=== PATIENT | female | born 1990 | race American Indian/Alaskan Native ===

== ENCOUNTER 2021-06-28 20:36 | Inpatient (IN) | payer MEDICAID, OTHER ==
[2021-06-28] MEDS ORDERED: LACTATED RINGERS 1,000 ML IV ONE (21:47)
[2021-06-28 22:41] LABS: Bilirubin,Urine NEG (Negative); Blood,Urine SM (Negative); Color,Urine Yellow (Yellow); Mucus,Urine FEW /HPF
[2021-06-29] MEDS ORDERED: AMPICILLIN/NS 2 GM/100 ML 2 GM/100 ML BAG IV ONE (00:45)
[2021-06-29] MEDS: LACTATED RINGERS 1,000 ML IV SCH ×2 (01:53→14:22)
[2021-06-29] MEDS: BETAMET ACET/BETAMET NA PH 6 MG/ML INJ 5 ML MDV IM SCH (01:54)
[2021-06-29 02:19] LABS: Hemoglobin 10.3 gm/dl (10.1-14.3)
[2021-06-29] MEDS: ZOLPIDEM 5 MG TAB PO PRN (02:29)
--- NOTE | 2021-06-29 03:10 | Ultrasound Report ---
ULTRASOUND OBSTETRIC INDICATION: Evaluate ARUN, presentation, weight. Clinical Gestational Age (GA): 23 weeks, 6 days TECHNIQUE: Transabdominal. COMPARISON: None available. FINDINGS: There is a single intrauterine . Biparietal Diameter = 6.12 cm = 24 weeks, 6 day(s). Head Circumference = 20.8 cm = 23 weeks, 6 day(s). Abdominal Circumference = 17.54 cm = 22 weeks, 3 day(s). Femur Length = 4.5 cm = 24 weeks, 5 day(s). Average Ultrasound Age (AUA) = 23 weeks, 5 day(s). Heart Rate: 148 beats per minute. Estimated Weight in grams (if calculated): 601 Estimated Weight Growth Percentile (if calculated): 26 Position: cephalic. Cervix: closed. Length in cm (if measured): 2.7 to Placenta: Right lateral and free of the os. Amniotic Fluid Volume: decreased Amniotic Fluid Index (ARUN) in cm (if calculated): 2.4. Maternal Adnexa: No significant abnormality. IMPRESSION: 1. Single, living intrauterine with estimated sonographic age of 23 weeks, 5 day(s). 2. Decreased amniotic fluid index of 2.4 cm. 3. No other significant abnormalities. Signer Name: Raphael Zamudio MD Signed: 06/29/2021 3:05 AM Workstation Name: [id number]
[2021-06-29 03:12] LABS: Hematocrit 31.8 % (30.3-42.9); Mean Corpuscular HGB Conc 32 % (30-34); Mean Corpuscular Volume 91 fl (79-97); Platelet Count 342 K/mm3 (140-440); Red Blood Count 3.52 M/mm3 (3.65-5.03); Red Cell Distribution Width 13.4 % (13.2-15.2)
[2021-06-29] MEDS: AMPICILLIN/NS 1 GM/50 ML 1 GM/50 ML BAG IV SCH ×5 (05:48→23:31)
--- NOTE | 2021-06-29 07:58 | History and Physical Report ---
History of Present Illness Date of examination: 06/28/21 Date of admission: 06/28/21 Chief complaint: PPROM at about 10pm 06/28/21. History of present illness: 23+wks. . CATIE 10/20/20. Past History Past Medical History: no pertinent history Past Surgical History: section - Obstetrical History Expected Date of Delivery: 10/20/21 Actual Gestation: 23 Week(s) 6 Day(s) : 2 Para: 1 Hx # Term Pregnancies: 1 Medications and Allergies Allergies Allergy/AdvReac Type Severity Reaction Status Date / Time No Known Allergies Allergy Verified 06/28/21 21:55 Home Medications Medication Instructions Recorded Confirmed Last Taken Type One Daily Tablet 1 tab PO DAILY 06/29/21 06/29/21 06/28/21 10:00 History Active Meds: Active Medications Betamethasone Acet/Betameth SodPhos (Betamet Acet/Betamet Na Ph 6 Mg/Ml Inj 5 Ml Mdv) 12 mg IM Q24H BETY Stop: 06/30/21 02:01 Last Admin: 06/29/21 01:54 Dose: 12 mg Documented by: Butorphanol Tartrate (Butorphanol 2 Mg/1 Ml Inj) 1 mg IV Q2H PRN PRN Reason: Pain, Moderate(4-6) LABOR PAIN Lactated Ringer's (Lactated Ringers) 1,000 mls @ 100 mls/hr IV DIRECT BETY Last Admin: 06/29/21 01:53 Dose: 100 mls/hr Documented by: Ampicillin Sodium (Ampicillin/Ns 1 Gm/50 Ml) 1 gm in 50 mls @ 100 mls/hr IV Q4H BETY; Protocol Last Admin: 06/29/21 05:48 Dose: 100 mls/hr Documented by: Zolpidem Tartrate (Zolpidem 5 Mg Tab) 5 mg PO QHS PRN PRN Reason: Sleep Last Admin: 06/29/21 02:29 Dose: 5 mg Documented by: Review of Systems All systems: negative Constitutional: no fever, no anorexia - Vital Signs Vital signs: Vital Signs Pulse Pulse Ox 102 H 98 06/28/21 21:32 06/28/21 21:32 Temp Pulse Resp BP Pulse Ox 98.8 F 84 17 98/58 98 06/29/21 00:21 06/29/21 07:52 06/29/21 00:21 06/29/21 00:21 06/29/21 07:52 - Physical Exam Breasts: Positive: deferred Cardiovascular: Regular rate Lungs: Positive: Normal air movement Abdomen: Positive: soft, distention Uterus: Positive: enlarged, normal contour Extremities: Positive: normal Deep Tendon Reflex Grade: Normal +2 - Obstetrical FHR: category 1 Results Result Diagrams: 06/29/21 01:40 Abnormal lab results 06/28/21 06/28/21 06/29/21 Range/Units 21:50 21:50 01:40 WBC 12.4 H (4.5-11.0) K/mm3 RBC 3.52 L (3.65-5.03) M/mm3 Urine WBC (Auto) 63.0 H (0.0-6.0) /HPF U Epithel Cells (Auto) 17.0 H (0-13.0) /HPF Membranes Rupture Positive A (Negative) All other labs normal. Ultrasound: report reviewed Assessment and Plan - Patient Problems (1) Premature rupture of membranes in second trimester Current Visit: Yes Status: Acute Plan to address problem: Admitted, rx ampicillin, betamethasone, MFM and NICU consults, gbs and urine cultures. MFM to advice on when MgSO4 for neuro protection should start.
[2021-06-29] MEDS: BUTORPHANOL 2 MG/1 ML INJ IV PRN (14:32)
[2021-06-29] MEDS: ERYTHROMYCIN LACTOBIONATE 250 MG in SODIUM CHLORIDE 0.9% 100 ML IV SCH (23:31)
[2021-06-30] MEDS: ONDANSETRON 4 MG/2 ML INJ IV PRN ×2 (01:57→12:51)
[2021-06-30] MEDS: ZOLPIDEM 5 MG TAB PO PRN ×2 (02:03→23:37)
[2021-06-30] MEDS: BETAMET ACET/BETAMET NA PH 6 MG/ML INJ 5 ML MDV IM SCH (02:03)
[2021-06-30] MEDS: LACTATED RINGERS 1,000 ML IV SCH ×3 (02:04→23:28)
[2021-06-30] MEDS: AMPICILLIN/NS 1 GM/50 ML 1 GM/50 ML BAG IV SCH ×5 (02:30→21:09)
[2021-06-30] MEDS: BUTORPHANOL 2 MG/1 ML INJ IV PRN (11:37)
[2021-06-30] MEDS: ERYTHROMYCIN LACTOBIONATE 250 MG in SODIUM CHLORIDE 0.9% 100 ML IV SCH ×2 (12:51→19:07)
--- NOTE | 2021-06-30 18:58 | Progress Note ---
Assessment and Plan - Patient Problems (1) Premature rupture of membranes in second trimester Current Visit: Yes Status: Acute Plan to address problem: Dr. Rios was in the unit yesterday 06/29/21 and was outbound sales consultant for his group. He accepted to see patient after we spoke. I contacted him again today and he confirmed having seen the patient yesterday and had sent in an efax re his evaluation. Consult note not on file. I spoke with the patient's RN, Nory and she confirmed being aware of the missing efax. Efforts to obtain efax urged. Subjective - Subjective Date of service: 06/30/21 Principal diagnosis: PPROM Interval history: 23+wks. . CATIE 10/20/20. Patient reports: loss of fluid, movement normal Objective - Vital Signs Vital Signs: Vital Signs - 12hr 06/30/21 06/30/21 06/30/21 08:00 08:05 08:44 Temperature Pulse Rate 80 Respiratory Rate Blood Pressure 100/55 O2 Sat by Pulse 100 Oximetry O2 Sat by Pulse 98 Oximetry [ Anterior Bilateral Throughout] 06/30/21 06/30/21 06/30/21 09:04 09:09 09:14 Temperature Pulse Rate 108 H 81 81 Respiratory Rate Blood Pressure O2 Sat by Pulse 100 99 99 Oximetry O2 Sat by Pulse Oximetry [ Anterior Bilateral Throughout] 06/30/21 06/30/21 06/30/21 09:19 09:24 09:29 Temperature Pulse Rate 79 89 91 H Respiratory Rate Blood Pressure O2 Sat by Pulse 98 98 99 Oximetry O2 Sat by Pulse Oximetry [ Anterior Bilateral Throughout] 06/30/21 06/30/21 06/30/21 09:34 09:39 09:44 Temperature Pulse Rate 91 H 83 86 Respiratory Rate Blood Pressure O2 Sat by Pulse 99 98 98 Oximetry O2 Sat by Pulse Oximetry [ Anterior Bilateral Throughout] 06/30/21 06/30/21 06/30/21 09:49 09:54 09:59 Temperature Pulse Rate 84 84 82 Respiratory Rate Blood Pressure O2 Sat by Pulse 98 98 99 Oximetry O2 Sat by Pulse Oximetry [ Anterior Bilateral Throughout] 06/30/21 06/30/21 06/30/21 10:04 10:09 10:14 Temperature Pulse Rate 88 84 83 Respiratory Rate Blood Pressure O2 Sat by Pulse 99 99 98 Oximetry O2 Sat by Pulse Oximetry [ Anterior Bilateral Throughout] 06/30/21 06/30/21 06/30/21 10:19 10:24 10:29 Temperature Pulse Rate 86 83 101 H Respiratory Rate Blood Pressure O2 Sat by Pulse 99 100 99 Oximetry O2 Sat by Pulse Oximetry [ Anterior Bilateral Throughout] 06/30/21 06/30/21 06/30/21 10:34 10:42 10:44 Temperature Pulse Rate 85 113 H Respiratory Rate Blood Pressure O2 Sat by Pulse 99 74 L 96 Oximetry O2 Sat by Pulse Oximetry [ Anterior Bilateral Throughout] 06/30/21 06/30/21 06/30/21 10:49 10:54 10:59 Temperature Pulse Rate 86 87 89 Respiratory Rate Blood Pressure O2 Sat by Pulse 99 99 99 Oximetry O2 Sat by Pulse Oximetry [ Anterior Bilateral Throughout] 06/30/21 06/30/21 06/30/21 11:04 11:09 11:14 Temperature Pulse Rate 79 91 H 88 Respiratory Rate Blood Pressure O2 Sat by Pulse 99 98 99 Oximetry O2 Sat by Pulse Oximetry [ Anterior Bilateral Throughout] 06/30/21 06/30/21 06/30/21 11:19 11:37 11:39 Temperature 98.2 F Pulse Rate 91 H 70 Respiratory 18 18 Rate Blood Pressure O2 Sat by Pulse 98 92 Oximetry O2 Sat by Pulse Oximetry [ Anterior Bilateral Throughout] 06/30/21 06/30/21 06/30/21 11:40 16:23 16:25 Temperature 98.2 F Pulse Rate 87 88 Respiratory 18 Rate Blood Pressure 99/59 111/57 O2 Sat by Pulse 52 L Oximetry O2 Sat by Pulse Oximetry [ Anterior Bilateral Throughout] - Exam Lungs: Normal air movement Abdomen: Absent: tenderness Uterus: Absent: tenderness Extremities: normal Deep Tendon Reflex Grade: Normal +2 - Labs Labs: Abnormal Labs 06/28/21 06/28/21 06/29/21 21:50 21:50 01:40 WBC 12.4 H RBC 3.52 L Urine WBC (Auto) 63.0 H U Epithel Cells (Auto) 17.0 H Membranes Rupture Positive A
[2021-07-01] MEDS: ERYTHROMYCIN LACTOBIONATE 250 MG in SODIUM CHLORIDE 0.9% 100 ML IV SCH ×4 (00:15→20:03)
[2021-07-01] MEDS: ONDANSETRON 4 MG/2 ML INJ IV PRN ×3 (00:47→20:08)
[2021-07-01] MEDS: AMPICILLIN/NS 1 GM/50 ML 1 GM/50 ML BAG IV SCH ×5 (03:00→22:05)
--- NOTE | 2021-07-01 08:15 | Progress Note ---
Assessment and Plan IUP at 24 1/7 weeks' PPROM Maternal PCOS Previous C/S Continue expectant management RGS in approximately 1 week Subjective - Subjective Date of service: 07/01/21 Principal diagnosis: PPROM Interval history: Feeling well, fetus active; denied contractions Patient reports: loss of fluid, movement normal Objective - Vital Signs Vital Signs: Vital Signs - 12hr 06/30/21 06/30/21 06/30/21 20:54 20:58 21:03 Temperature 98.0 F Pulse Rate 71 76 Respiratory 18 Rate Blood Pressure Blood Pressure 96/56 [Left] O2 Sat by Pulse 98 98 Oximetry O2 Sat by Pulse 99 Oximetry [ Anterior Bilateral Throughout] 06/30/21 07/01/21 07/01/21 21:04 03:41 03:43 Temperature 98.0 F Pulse Rate 76 77 77 Respiratory 16 Rate Blood Pressure 96/56 95/50 Blood Pressure 95/50 [Left] O2 Sat by Pulse Oximetry O2 Sat by Pulse Oximetry [ Anterior Bilateral Throughout] 07/01/21 07:16 Temperature Pulse Rate 75 Respiratory Rate Blood Pressure 100/55 Blood Pressure [Left] O2 Sat by Pulse Oximetry O2 Sat by Pulse Oximetry [ Anterior Bilateral Throughout] - Exam Narrative Exam: Abdomen soft, nontender; FHT's reassuring for EGA earlier today - Labs Labs: Abnormal Labs 06/28/21 06/28/21 06/29/21 21:50 21:50 01:40 WBC 12.4 H RBC 3.52 L Urine WBC (Auto) 63.0 H U Epithel Cells (Auto) 17.0 H Membranes Rupture Positive A
--- NOTE | 2021-07-01 11:31 | Progress Note ---
Assessment and Plan - Patient Problems (1) Premature rupture of membranes in second trimester Current Visit: Yes Status: Acute Plan to address problem: Hospital mgt to continue. Subjective - Subjective Date of service: 07/01/21 Principal diagnosis: PPROM, 24+1wks Interval history: 23+wks. . CATIE 10/20/20. Patient reports: loss of fluid, movement normal Objective - Vital Signs Vital Signs: Vital Signs - 12hr 07/01/21 07/01/21 07/01/21 03:41 03:43 07:16 Temperature 98.0 F Pulse Rate 77 77 75 Respiratory 16 Rate Blood Pressure 95/50 100/55 Blood Pressure 95/50 [Left] - Exam Breasts: deferred Cardiovascular: Regular rate Lungs: Normal air movement Abdomen: Present: normal appearance, soft, normal bowel sounds. Absent: tenderness Uterus: Present: normal. Absent: tenderness FHR: auscultation normal - Labs Labs: Abnormal Labs 06/28/21 06/28/21 06/29/21 21:50 21:50 01:40 WBC 12.4 H RBC 3.52 L Urine WBC (Auto) 63.0 H U Epithel Cells (Auto) 17.0 H Membranes Rupture Positive A
[2021-07-01] MEDS: BUTORPHANOL 2 MG/1 ML INJ IV PRN (16:26)
[2021-07-01] MEDS: LACTATED RINGERS 1,000 ML IV SCH (22:04)
[2021-07-02] MEDS: ZOLPIDEM 5 MG TAB PO PRN ×2 (01:25→23:25)
[2021-07-02] MEDS: AMPICILLIN/NS 1 GM/50 ML 1 GM/50 ML BAG IV SCH ×5 (01:25→21:01)
[2021-07-02] MEDS: ONDANSETRON 4 MG/2 ML INJ IV PRN (03:42)
[2021-07-02] MEDS: ERYTHROMYCIN LACTOBIONATE 250 MG in SODIUM CHLORIDE 0.9% 100 ML IV SCH (03:42)
--- NOTE | 2021-07-02 08:03 | Progress Note ---
Assessment and Plan A: 1.IUP at 24 2/7 weeks' EFW 06/29 1 lb 5 oz 26% 2. PPROM 3. Maternal PCOS 4. Previous C/S Rec: Complete latency antibiotics Twice weekly testing beginning at 27-28 weeks Growth scan q 3 weeks RGS 1 week after completion of the BMZ Monitor for chorioamnionitis, labor, distress Delivery at 34 0/7 weeks gestation , sooner if indicated Subjective - Subjective Date of service: 07/02/21 Principal diagnosis: PPROM, 24+2wks Interval history: Notes LOF denied bleeding or contractions s/p BMZ Patient reports: loss of fluid, movement normal Objective - Vital Signs Vital Signs: Vital Signs - 12hr 07/01/21 07/01/21 07/01/21 22:47 22:51 22:53 Temperature Pulse Rate 90 125 H Respiratory Rate Blood Pressure Blood Pressure [Left] O2 Sat by Pulse 88 84 85 Oximetry O2 Sat by Pulse Oximetry [ Anterior Bilateral Throughout] 07/01/21 07/01/21 07/01/21 22:56 23:01 23:06 Temperature Pulse Rate 66 70 72 Respiratory Rate Blood Pressure Blood Pressure [Left] O2 Sat by Pulse 100 99 99 Oximetry O2 Sat by Pulse Oximetry [ Anterior Bilateral Throughout] 07/01/21 07/01/21 07/01/21 23:11 23:16 23:21 Temperature Pulse Rate 73 67 70 Respiratory Rate Blood Pressure Blood Pressure [Left] O2 Sat by Pulse 99 100 100 Oximetry O2 Sat by Pulse Oximetry [ Anterior Bilateral Throughout] 07/01/21 07/01/21 07/01/21 23:22 23:26 23:31 Temperature 98.5 F Pulse Rate 69 81 74 Respiratory 18 Rate Blood Pressure 132/61 Blood Pressure 132/61 [Left] O2 Sat by Pulse 98 99 99 Oximetry O2 Sat by Pulse Oximetry [ Anterior Bilateral Throughout] 07/01/21 07/01/21 07/01/21 23:36 23:41 23:46 Temperature Pulse Rate 71 69 68 Respiratory Rate Blood Pressure Blood Pressure [Left] O2 Sat by Pulse 99 99 99 Oximetry O2 Sat by Pulse Oximetry [ Anterior Bilateral Throughout] 07/01/21 07/01/21 07/02/21 23:51 23:56 00:01 Temperature Pulse Rate 72 69 68 Respiratory Rate Blood Pressure Blood Pressure [Left] O2 Sat by Pulse 99 99 100 Oximetry O2 Sat by Pulse Oximetry [ Anterior Bilateral Throughout] 07/02/21 07/02/21 07/02/21 00:02 00:08 00:13 Temperature Pulse Rate 76 197 H 68 Respiratory Rate Blood Pressure Blood Pressure [Left] O2 Sat by Pulse 79 L 81 L 100 Oximetry O2 Sat by Pulse Oximetry [ Anterior Bilateral Throughout] 07/02/21 07/02/21 07/02/21 00:18 00:23 00:28 Temperature Pulse Rate 69 68 67 Respiratory Rate Blood Pressure Blood Pressure [Left] O2 Sat by Pulse 99 99 99 Oximetry O2 Sat by Pulse Oximetry [ Anterior Bilateral Throughout] 07/02/21 07/02/21 07/02/21 00:33 00:38 00:43 Temperature Pulse Rate 68 72 68 Respiratory Rate Blood Pressure Blood Pressure [Left] O2 Sat by Pulse 99 99 98 Oximetry O2 Sat by Pulse Oximetry [ Anterior Bilateral Throughout] 07/02/21 07/02/21 07/02/21 00:48 00:53 00:58 Temperature Pulse Rate 74 73 73 Respiratory Rate Blood Pressure Blood Pressure [Left] O2 Sat by Pulse 99 92 100 Oximetry O2 Sat by Pulse Oximetry [ Anterior Bilateral Throughout] 07/02/21 07/02/21 07/02/21 01:03 01:08 01:13 Temperature Pulse Rate 72 67 69 Respiratory Rate Blood Pressure Blood Pressure [Left] O2 Sat by Pulse 99 99 99 Oximetry O2 Sat by Pulse Oximetry [ Anterior Bilateral Throughout] 07/02/21 07/02/21 07/02/21 01:18 01:23 01:28 Temperature Pulse Rate 77 70 69 Respiratory Rate Blood Pressure Blood Pressure [Left] O2 Sat by Pulse 99 98 98 Oximetry O2 Sat by Pulse Oximetry [ Anterior Bilateral Throughout] 07/02/21 07/02/21 07/02/21 03:43 03:50 05:11 Temperature 98.4 F Pulse Rate 86 84 177 H Respiratory 18 Rate Blood Pressure 122/59 Blood Pressure 122/59 [Left] O2 Sat by Pulse 82 L 82 L Oximetry O2 Sat by Pulse Oximetry [ Anterior Bilateral Throughout] 07/02/21 07/02/21 07/02/21 05:16 05:19 05:21 Temperature Pulse Rate 119 H 80 86 Respiratory Rate Blood Pressure 98/58 Blood Pressure [Left] O2 Sat by Pulse 82 L 98 Oximetry O2 Sat by Pulse Oximetry [ Anterior Bilateral Throughout] 07/02/21 07/02/21 07/02/21 05:26 05:31 05:36 Temperature Pulse Rate 89 89 91 H Respiratory Rate Blood Pressure Blood Pressure [Left] O2 Sat by Pulse 98 98 99 Oximetry O2 Sat by Pulse Oximetry [ Anterior Bilateral Throughout] 07/02/21 07/02/21 07/02/21 05:41 05:46 05:51 Temperature Pulse Rate 93 H 92 H 92 H Respiratory Rate Blood Pressure Blood Pressure [Left] O2 Sat by Pulse 98 98 98 Oximetry O2 Sat by Pulse Oximetry [ Anterior Bilateral Throughout] 07/02/21 07/02/21 07/02/21 05:56 06:01 06:06 Temperature Pulse Rate 86 93 H 84 Respiratory Rate Blood Pressure Blood Pressure [Left] O2 Sat by Pulse 98 98 98 Oximetry O2 Sat by Pulse Oximetry [ Anterior Bilateral Throughout] 07/02/21 07/02/21 07/02/21 06:11 06:16 06:21 Temperature Pulse Rate 79 82 81 Respiratory Rate Blood Pressure Blood Pressure [Left] O2 Sat by Pulse 99 99 99 Oximetry O2 Sat by Pulse Oximetry [ Anterior Bilateral Throughout] 07/02/21 07/02/21 07/02/21 06:26 06:31 06:36 Temperature Pulse Rate 89 76 78 Respiratory Rate Blood Pressure Blood Pressure [Left] O2 Sat by Pulse 99 99 98 Oximetry O2 Sat by Pulse Oximetry [ Anterior Bilateral Throughout] 07/02/21 07/02/21 07/02/21 06:41 06:46 06:51 Temperature Pulse Rate 77 77 72 Respiratory Rate Blood Pressure Blood Pressure [Left] O2 Sat by Pulse 99 99 99 Oximetry O2 Sat by Pulse Oximetry [ Anterior Bilateral Throughout] 07/02/21 07/02/21 07/02/21 06:56 07:01 07:04 Temperature Pulse Rate 76 77 82 Respiratory Rate Blood Pressure 85/55 Blood Pressure [Left] O2 Sat by Pulse 98 98 Oximetry O2 Sat by Pulse Oximetry [ Anterior Bilateral Throughout] 07/02/21 07/02/21 07:05 07:20 Temperature 98.2 F Pulse Rate 68 Respiratory 18 Rate Blood Pressure 82/53 Blood Pressure [Left] O2 Sat by Pulse Oximetry O2 Sat by Pulse 98 Oximetry [ Anterior Bilateral Throughout] - Labs Labs: Abnormal Labs 06/28/21 06/28/21 06/29/21 21:50 21:50 01:40 WBC 12.4 H RBC 3.52 L Urine WBC (Auto) 63.0 H U Epithel Cells (Auto) 17.0 H Membranes Rupture Positive A
[2021-07-02] MEDS: LACTATED RINGERS 1,000 ML IV SCH ×2 (09:16→21:47)
--- NOTE | 2021-07-02 17:43 | Consultation ---
Consult Note - Parent Education I met with parent(s) and discussed the following:: Need for NICU admission, Poss ible need for intubation and surfactant or other resp support, Temperature regulation, Head ultrasounds to evaluate IVH, Eye exams for ROP screening, Possible need for IV fluids/TPN and IV antibiotics, Possible need for umbilical lines, Importance of providing breast milk & encouraged pumping aft delivery, Donor breast milk if baby meets criteria after , Slow feeding advancement and monitoring of tolerance. NG/OG feeds, Need to monitor for jaundice, Data for survival & survival without significant co-morbidities Parent(s) demonstrated understanding of all the information:: Yes Additional Comment: Parents asked good questions and are aware we are available for further questions if needed as she advances in . She and FOB stated all questions were answered during this consult. Mother stated her doctors have a first goal of 28 weeks. She has been treated with antibiotics of latency and betamethasone X 2. Assessment and Plan - Assessment Gestation:: 24 Baby's gender: Female - Plan Plan: INDICATIONS FOR CONSULT: _ Maternal Hx: 31 yo female GA: 24 wk care with: Hx: PPROM at 23 6/7 on 06/28/2021 PMHx: Noncontributory Family Hx: Noncontributory Social Hx: ETOH: No, Illegal Drugs: No, Smoking: No meds: Betamethasone Yes X 2, antibiotics Labs, if available: Blood type: .A + AntiBody screen: - . HBsAg: Negative RPR: Neg Rubella: Immune GBS; Unknown HIV: NR CH/GC: Negative Consulted to see this mom who is at 24 weeks with: PPROM at 23 6/7 . Mother was admitted on 06/28/2021 to this hospital for: PPROM. During the consult with this patient and her family she was advised of all the standard procedures done to babies born with this clinical condition in the NICU. She was also advised of all the possible complications associated with premature . These complications include, but are not limited to IVH, RDS, CV Instability, Sepsis, Anemia of prematurity, Feeding problems, NEC, ROP, , etc. All her questions and concerns were addressed, and she was advised to follow the recommendations from her physicians. She was also encouraged to call for us in case of more questions. Thanks for this consultation. TOTAL TIME SPENT DURING THIS CONSULATATION WAS: 30 minutes.
--- NOTE | 2021-07-02 20:23 | Progress Note ---
Assessment and Plan - Patient Problems (1) Premature rupture of membranes in second trimester Status: Acute Plan to address problem: Stable. Peds and MFM consults noted. Subjective - Subjective Date of service: 07/02/21 Principal diagnosis: PPROM, 24+3wks Interval history: 23+wks. . CATIE 10/20/20. 07/02/21 23+3wks Patient reports: loss of fluid, movement normal, no new complaints, no vaginal bleeding, no contractions Objective - Vital Signs Vital Signs: Vital Signs - 12hr 07/02/21 07/02/21 07/02/21 08:55 09:30 12:12 Temperature 98.0 F 98.3 F Pulse Rate 77 Blood Pressure 97/54 O2 Sat by Pulse 73 L 85 Oximetry 07/02/21 07/02/21 07/02/21 12:13 13:00 13:02 Temperature Pulse Rate 77 58 L 86 Blood Pressure 93/57 O2 Sat by Pulse 82 L 100 Oximetry 07/02/21 07/02/21 07/02/21 13:07 13:12 13:17 Temperature Pulse Rate 94 H 79 80 Blood Pressure O2 Sat by Pulse 98 100 100 Oximetry 07/02/21 07/02/21 07/02/21 13:22 13:27 13:32 Temperature Pulse Rate 82 79 80 Blood Pressure O2 Sat by Pulse 100 100 100 Oximetry 07/02/21 07/02/21 07/02/21 13:37 13:42 13:47 Temperature Pulse Rate 79 76 77 Blood Pressure O2 Sat by Pulse 100 100 86 Oximetry 07/02/21 07/02/21 07/02/21 13:52 13:57 14:02 Temperature Pulse Rate 37 L 79 75 Blood Pressure O2 Sat by Pulse 83 L 99 99 Oximetry 07/02/21 07/02/21 07/02/21 14:07 14:12 14:17 Temperature 98.3 F Pulse Rate 71 78 89 Blood Pressure O2 Sat by Pulse 99 99 99 Oximetry 07/02/21 07/02/21 07/02/21 14:21 14:22 14:27 Temperature Pulse Rate 84 83 86 Blood Pressure O2 Sat by Pulse 86 98 98 Oximetry 07/02/21 07/02/21 07/02/21 14:32 14:37 14:42 Temperature Pulse Rate 80 82 81 Blood Pressure O2 Sat by Pulse 98 98 99 Oximetry 07/02/21 07/02/21 14:47 14:52 Temperature Pulse Rate 82 89 Blood Pressure O2 Sat by Pulse 98 98 Oximetry - Exam Breasts: deferred Lungs: Normal air movement Abdomen: Present: normal appearance, soft, normal bowel sounds Uterus: Present: normal. Absent: tenderness FHR: auscultation normal Extremities: normal Deep Tendon Reflex Grade: Normal +2 - Labs Labs: Abnormal Labs 06/28/21 06/28/21 06/29/21 21:50 21:50 01:40 WBC 12.4 H RBC 3.52 L Urine WBC (Auto) 63.0 H U Epithel Cells (Auto) 17.0 H Membranes Rupture Positive A Laboratory Results - last 24 hr 07/02/21 10:19 Blood Type O POSITIVE Antibody Screen Negative
[2021-07-02] MEDS: BUTORPHANOL 2 MG/1 ML INJ IV PRN (21:42)
[2021-07-03] MEDS: AMPICILLIN/NS 1 GM/50 ML 1 GM/50 ML BAG IV SCH ×3 (01:15→10:10)
[2021-07-03] MEDS: LACTATED RINGERS 1,000 ML IV SCH (06:33)
--- NOTE | 2021-07-03 12:29 | Progress Note ---
Assessment and Plan - Patient Problems (1) Premature rupture of membranes in second trimester Status: Acute Plan to address problem: I spoke with Wade SILVER. Switch IV ampicillin to po Amoxicillin 500mg q8h to complete 1wk course of penicillin rx. Subjective - Subjective Date of service: 07/03/21 Principal diagnosis: PPROM, 24+4wks Interval history: 23+wks. . CATIE 10/20/20. 07/03/21 23+4wks Patient reports: loss of fluid, movement normal, no new complaints, no vaginal bleeding, no contractions Objective - Vital Signs Vital Signs: Vital Signs - 12hr 07/03/21 07/03/21 07/03/21 01:20 01:21 05:14 Temperature 98.4 F 98.3 F Pulse Rate 147 H 69 73 Respiratory 18 16 Rate Blood Pressure 111/58 92/51 Blood Pressure 111/58 95/51 [Left] O2 Sat by Pulse 80 L 98 98 Oximetry O2 Sat by Pulse Oximetry [ Anterior Bilateral Throughout] 07/03/21 07/03/21 07/03/21 07:18 07:19 07:23 Temperature 98.1 F Pulse Rate 67 67 Respiratory 16 Rate Blood Pressure 96/53 Blood Pressure 96/53 [Left] O2 Sat by Pulse 100 100 Oximetry O2 Sat by Pulse 100 Oximetry [ Anterior Bilateral Throughout] - Exam Breasts: deferred Lungs: Normal air movement Abdomen: Present: normal appearance, soft. Absent: tenderness Uterus: Absent: tenderness FHR: auscultation normal Uterine Contraction Pattern: Absent Extremities: normal Deep Tendon Reflex Grade: Normal +2 - Labs Labs: Abnormal Labs 06/28/21 06/28/21 06/29/21 21:50 21:50 01:40 WBC 12.4 H RBC 3.52 L Urine WBC (Auto) 63.0 H U Epithel Cells (Auto) 17.0 H Membranes Rupture Positive A
[2021-07-03] MEDS: AMOXICILLIN 500 MG CAP PO SCH ×2 (13:43→22:40)
[2021-07-03] MEDS: BUTORPHANOL 2 MG/1 ML INJ IV PRN (19:37)
[2021-07-04] MEDS: AMOXICILLIN 500 MG CAP PO SCH ×3 (06:04→22:54)
--- NOTE | 2021-07-04 08:38 | Progress Note ---
Assessment and Plan IUP at 24 4/7 weeks' PPROM Maternal PCOS Previous C/S Continue expectant management RGS in approximately 1 week Subjective - Subjective Date of service: 07/04/21 Principal diagnosis: PPROM, 24+4wks Interval history: Feeling well, fetus active; denied contractions Patient reports: loss of fluid, movement normal, no new complaints, no vaginal bleeding, no contractions Objective - Vital Signs Vital Signs: Vital Signs - 12hr 07/03/21 07/03/21 07/03/21 21:18 21:22 21:23 Temperature Pulse Rate 36 L 67 76 Respiratory Rate Blood Pressure Blood Pressure [Left] O2 Sat by Pulse 87 84 98 Oximetry 07/03/21 07/03/21 07/03/21 21:28 21:33 21:38 Temperature Pulse Rate 73 80 71 Respiratory Rate Blood Pressure Blood Pressure [Left] O2 Sat by Pulse 100 99 99 Oximetry 07/03/21 07/03/21 07/03/21 21:43 21:48 21:53 Temperature Pulse Rate 73 73 67 Respiratory Rate Blood Pressure Blood Pressure [Left] O2 Sat by Pulse 99 99 99 Oximetry 07/03/21 07/03/21 07/03/21 21:58 22:03 22:08 Temperature Pulse Rate 71 71 74 Respiratory Rate Blood Pressure Blood Pressure [Left] O2 Sat by Pulse 99 98 98 Oximetry 07/03/21 07/03/21 07/03/21 22:13 22:18 22:23 Temperature Pulse Rate 73 80 74 Respiratory Rate Blood Pressure Blood Pressure [Left] O2 Sat by Pulse 98 98 98 Oximetry 07/03/21 07/03/21 07/03/21 22:28 22:33 22:38 Temperature Pulse Rate 75 73 71 Respiratory Rate Blood Pressure Blood Pressure [Left] O2 Sat by Pulse 97 97 97 Oximetry 07/03/21 07/03/21 07/03/21 22:43 22:48 22:53 Temperature Pulse Rate 74 75 71 Respiratory Rate Blood Pressure Blood Pressure [Left] O2 Sat by Pulse 98 98 98 Oximetry 07/03/21 07/03/21 07/03/21 22:58 23:03 23:08 Temperature Pulse Rate 70 73 78 Respiratory Rate Blood Pressure Blood Pressure [Left] O2 Sat by Pulse 99 98 98 Oximetry 07/03/21 07/03/21 07/03/21 23:13 23:18 23:23 Temperature Pulse Rate 70 69 72 Respiratory Rate Blood Pressure Blood Pressure [Left] O2 Sat by Pulse 99 99 98 Oximetry 07/04/21 07/04/21 07/04/21 06:04 06:05 06:10 Temperature Pulse Rate 76 Respiratory Rate Blood Pressure Blood Pressure [Left] O2 Sat by Pulse 85 91 82 L Oximetry 07/04/21 07/04/21 07/04/21 06:14 06:15 06:17 Temperature 97.9 F Pulse Rate 89 65 70 Respiratory 18 Rate Blood Pressure 99/63 Blood Pressure 99/63 [Left] O2 Sat by Pulse 86 83 L 98 Oximetry 07/04/21 07/04/21 07/04/21 06:19 06:24 06:26 Temperature Pulse Rate 71 70 77 Respiratory Rate Blood Pressure Blood Pressure [Left] O2 Sat by Pulse 98 98 91 Oximetry 07/04/21 07/04/21 07/04/21 06:29 06:34 06:39 Temperature Pulse Rate 76 63 105 H Respiratory Rate Blood Pressure Blood Pressure [Left] O2 Sat by Pulse 99 99 74 L Oximetry 07/04/21 07/04/21 07/04/21 06:44 06:49 06:54 Temperature Pulse Rate 69 65 66 Respiratory Rate Blood Pressure Blood Pressure [Left] O2 Sat by Pulse 98 99 99 Oximetry 07/04/21 07/04/21 07/04/21 06:59 07:04 07:09 Temperature Pulse Rate 65 68 72 Respiratory Rate Blood Pressure Blood Pressure [Left] O2 Sat by Pulse 99 99 98 Oximetry 07/04/21 07/04/21 07/04/21 07:14 07:19 07:24 Temperature Pulse Rate 72 69 72 Respiratory Rate Blood Pressure Blood Pressure [Left] O2 Sat by Pulse 98 98 99 Oximetry 07/04/21 07/04/21 07/04/21 07:29 07:34 07:39 Temperature Pulse Rate 66 72 69 Respiratory Rate Blood Pressure Blood Pressure [Left] O2 Sat by Pulse 99 98 98 Oximetry 07/04/21 07/04/21 07/04/21 07:44 07:49 07:54 Temperature Pulse Rate 69 68 65 Respiratory Rate Blood Pressure Blood Pressure [Left] O2 Sat by Pulse 98 98 99 Oximetry 07/04/21 07/04/21 07/04/21 07:59 08:04 08:07 Temperature Pulse Rate 68 89 Respiratory Rate Blood Pressure Blood Pressure [Left] O2 Sat by Pulse 99 99 70 L Oximetry 07/04/21 07/04/21 07/04/21 08:09 08:14 08:20 Temperature Pulse Rate 176 H 107 H 98 H Respiratory Rate Blood Pressure Blood Pressure [Left] O2 Sat by Pulse 82 L 78 L 78 L Oximetry 07/04/21 07/04/21 07/04/21 08:23 08:26 08:31 Temperature Pulse Rate 102 H 160 H Respiratory Rate Blood Pressure Blood Pressure [Left] O2 Sat by Pulse 79 L 78 L 78 L Oximetry 07/04/21 07/04/21 08:34 08:36 Temperature Pulse Rate 105 H Respiratory Rate Blood Pressure Blood Pressure [Left] O2 Sat by Pulse 78 L 79 L Oximetry - Exam Narrative Exam: Abdomen soft, nontender; FHT's reassuring for EGA earlier today - Labs Labs: Abnormal Labs 06/28/21 06/28/21 06/29/21 21:50 21:50 01:40 WBC 12.4 H RBC 3.52 L Urine WBC (Auto) 63.0 H U Epithel Cells (Auto) 17.0 H Membranes Rupture Positive A
[2021-07-04] MEDS: BUTORPHANOL 2 MG/1 ML INJ IV PRN (09:44)
--- NOTE | 2021-07-04 09:54 | Progress Note ---
Assessment and Plan - Patient Problems (1) Premature rupture of membranes in second trimester Status: Acute Plan to address problem: Present mgt to continue. Subjective - Subjective Date of service: 07/04/21 Principal diagnosis: PPROM, 24+5wks Interval history: 23+wks. . CATIE 10/20/20. 07/03/21 23+5wks No complaints. Eating breakfast. Patient reports: loss of fluid, movement normal, no new complaints, no vaginal bleeding, no contractions Objective - Vital Signs Vital Signs: Vital Signs - 12hr 07/03/21 07/03/21 07/03/21 21:53 21:58 22:03 Temperature Pulse Rate 67 71 71 Respiratory Rate Blood Pressure Blood Pressure [Left] O2 Sat by Pulse 99 99 98 Oximetry O2 Sat by Pulse Oximetry [ Anterior Bilateral Throughout] 07/03/21 07/03/21 07/03/21 22:08 22:13 22:18 Temperature Pulse Rate 74 73 80 Respiratory Rate Blood Pressure Blood Pressure [Left] O2 Sat by Pulse 98 98 98 Oximetry O2 Sat by Pulse Oximetry [ Anterior Bilateral Throughout] 07/03/21 07/03/21 07/03/21 22:23 22:28 22:33 Temperature Pulse Rate 74 75 73 Respiratory Rate Blood Pressure Blood Pressure [Left] O2 Sat by Pulse 98 97 97 Oximetry O2 Sat by Pulse Oximetry [ Anterior Bilateral Throughout] 07/03/21 07/03/21 07/03/21 22:38 22:43 22:48 Temperature Pulse Rate 71 74 75 Respiratory Rate Blood Pressure Blood Pressure [Left] O2 Sat by Pulse 97 98 98 Oximetry O2 Sat by Pulse Oximetry [ Anterior Bilateral Throughout] 07/03/21 07/03/21 07/03/21 22:53 22:58 23:03 Temperature Pulse Rate 71 70 73 Respiratory Rate Blood Pressure Blood Pressure [Left] O2 Sat by Pulse 98 99 98 Oximetry O2 Sat by Pulse Oximetry [ Anterior Bilateral Throughout] 07/03/21 07/03/21 07/03/21 23:08 23:13 23:18 Temperature Pulse Rate 78 70 69 Respiratory Rate Blood Pressure Blood Pressure [Left] O2 Sat by Pulse 98 99 99 Oximetry O2 Sat by Pulse Oximetry [ Anterior Bilateral Throughout] 07/03/21 07/04/21 07/04/21 23:23 06:04 06:05 Temperature Pulse Rate 72 76 Respiratory Rate Blood Pressure Blood Pressure [Left] O2 Sat by Pulse 98 85 91 Oximetry O2 Sat by Pulse Oximetry [ Anterior Bilateral Throughout] 07/04/21 07/04/21 07/04/21 06:10 06:14 06:15 Temperature Pulse Rate 89 65 Respiratory Rate Blood Pressure 99/63 Blood Pressure [Left] O2 Sat by Pulse 82 L 86 83 L Oximetry O2 Sat by Pulse Oximetry [ Anterior Bilateral Throughout] 07/04/21 07/04/21 07/04/21 06:17 06:19 06:24 Temperature 97.9 F Pulse Rate 70 71 70 Respiratory 18 Rate Blood Pressure Blood Pressure 99/63 [Left] O2 Sat by Pulse 98 98 98 Oximetry O2 Sat by Pulse Oximetry [ Anterior Bilateral Throughout] 07/04/21 07/04/21 07/04/21 06:26 06:29 06:34 Temperature Pulse Rate 77 76 63 Respiratory Rate Blood Pressure Blood Pressure [Left] O2 Sat by Pulse 91 99 99 Oximetry O2 Sat by Pulse Oximetry [ Anterior Bilateral Throughout] 07/04/21 07/04/21 07/04/21 06:39 06:44 06:49 Temperature Pulse Rate 105 H 69 65 Respiratory Rate Blood Pressure Blood Pressure [Left] O2 Sat by Pulse 74 L 98 99 Oximetry O2 Sat by Pulse Oximetry [ Anterior Bilateral Throughout] 07/04/21 07/04/21 07/04/21 06:54 06:59 07:04 Temperature Pulse Rate 66 65 68 Respiratory Rate Blood Pressure Blood Pressure [Left] O2 Sat by Pulse 99 99 99 Oximetry O2 Sat by Pulse Oximetry [ Anterior Bilateral Throughout] 07/04/21 07/04/21 07/04/21 07:09 07:14 07:19 Temperature Pulse Rate 72 72 69 Respiratory Rate Blood Pressure Blood Pressure [Left] O2 Sat by Pulse 98 98 98 Oximetry O2 Sat by Pulse Oximetry [ Anterior Bilateral Throughout] 07/04/21 07/04/21 07/04/21 07:24 07:29 07:34 Temperature Pulse Rate 72 66 72 Respiratory Rate Blood Pressure Blood Pressure [Left] O2 Sat by Pulse 99 99 98 Oximetry O2 Sat by Pulse Oximetry [ Anterior Bilateral Throughout] 07/04/21 07/04/21 07/04/21 07:39 07:44 07:49 Temperature Pulse Rate 69 69 68 Respiratory Rate Blood Pressure Blood Pressure [Left] O2 Sat by Pulse 98 98 98 Oximetry O2 Sat by Pulse Oximetry [ Anterior Bilateral Throughout] 07/04/21 07/04/21 07/04/21 07:54 07:59 08:04 Temperature Pulse Rate 65 68 89 Respiratory Rate Blood Pressure Blood Pressure [Left] O2 Sat by Pulse 99 99 99 Oximetry O2 Sat by Pulse Oximetry [ Anterior Bilateral Throughout] 07/04/21 07/04/21 07/04/21 08:07 08:09 08:14 Temperature Pulse Rate 176 H 107 H Respiratory Rate Blood Pressure Blood Pressure [Left] O2 Sat by Pulse 70 L 82 L 78 L Oximetry O2 Sat by Pulse Oximetry [ Anterior Bilateral Throughout] 07/04/21 07/04/21 07/04/21 08:20 08:23 08:26 Temperature Pulse Rate 98 H 102 H Respiratory Rate Blood Pressure Blood Pressure [Left] O2 Sat by Pulse 78 L 79 L 78 L Oximetry O2 Sat by Pulse Oximetry [ Anterior Bilateral Throughout] 07/04/21 07/04/21 07/04/21 08:31 08:34 08:36 Temperature Pulse Rate 160 H 105 H Respiratory Rate Blood Pressure Blood Pressure [Left] O2 Sat by Pulse 78 L 78 L 79 L Oximetry O2 Sat by Pulse Oximetry [ Anterior Bilateral Throughout] 07/04/21 07/04/21 07/04/21 08:40 08:41 08:46 Temperature Pulse Rate 100 H 189 H Respiratory Rate Blood Pressure Blood Pressure [Left] O2 Sat by Pulse 78 L 78 L 78 L Oximetry O2 Sat by Pulse Oximetry [ Anterior Bilateral Throughout] 07/04/21 07/04/21 07/04/21 08:51 08:56 08:59 Temperature Pulse Rate 181 H 184 H Respiratory Rate Blood Pressure Blood Pressure [Left] O2 Sat by Pulse 78 L 78 L 80 L Oximetry O2 Sat by Pulse Oximetry [ Anterior Bilateral Throughout] 07/04/21 07/04/21 07/04/21 09:01 09:07 09:10 Temperature Pulse Rate 142 H 111 H Respiratory Rate Blood Pressure Blood Pressure [Left] O2 Sat by Pulse 78 L 79 L 80 L Oximetry O2 Sat by Pulse Oximetry [ Anterior Bilateral Throughout] 07/04/21 07/04/21 07/04/21 09:22 09:27 09:29 Temperature 98.9 F Pulse Rate 74 78 59 L Respiratory 17 Rate Blood Pressure Blood Pressure [Left] O2 Sat by Pulse 99 99 99 Oximetry O2 Sat by Pulse Oximetry [ Anterior Bilateral Throughout] 07/04/21 07/04/21 07/04/21 09:30 09:32 09:37 Temperature Pulse Rate 72 81 78 Respiratory Rate Blood Pressure 102/51 Blood Pressure [Left] O2 Sat by Pulse 99 99 Oximetry O2 Sat by Pulse 99 Oximetry [ Anterior Bilateral Throughout] 07/04/21 07/04/21 09:42 09:47 Temperature Pulse Rate 79 84 Respiratory Rate Blood Pressure Blood Pressure [Left] O2 Sat by Pulse 99 98 Oximetry O2 Sat by Pulse Oximetry [ Anterior Bilateral Throughout] - Exam Lungs: Normal air movement Abdomen: Present: normal appearance. Absent: tenderness Uterus: Absent: tenderness FHR: auscultation normal Uterine Contraction Pattern: Absent Extremities: normal Deep Tendon Reflex Grade: Normal +2 - Labs Labs: Abnormal Labs 06/28/21 06/28/21 06/29/21 21:50 21:50 01:40 WBC 12.4 H RBC 3.52 L Urine WBC (Auto) 63.0 H U Epithel Cells (Auto) 17.0 H Membranes Rupture Positive A
[2021-07-04] MEDS ORDERED: ACETAMINOPHEN 325 MG TAB PO PRN (16:52)
[2021-07-05] MEDS: BUTORPHANOL 2 MG/1 ML INJ IV PRN (00:06)
[2021-07-05] MEDS: DOCUSATE SODIUM 100 MG CAP PO PRN ×2 (00:50→15:40)
--- NOTE | 2021-07-05 12:12 | Progress Note ---
Assessment and Plan - Patient Problems (1) Premature rupture of membranes in second trimester Status: Acute Plan to address problem: Present mgt to continue. Subjective - Subjective Date of service: 07/05/21 Principal diagnosis: PPROM, 24+6wks Interval history: 23+wks. . CATIE 10/20/20. 07/05/21 23+6wks No complaints. Patient reports: loss of fluid, movement normal, no new complaints, no vaginal bleeding, no contractions Objective - Vital Signs Vital Signs: Vital Signs - 12hr 07/05/21 07/05/21 07/05/21 00:30 00:31 00:32 Temperature 97.9 F Pulse Rate 69 69 Respiratory 16 Rate Blood Pressure 112/59 Blood Pressure 112/59 [Left] O2 Sat by Pulse 98 Oximetry [ Anterior Bilateral Throughout] - Exam Lungs: Normal air movement Abdomen: Present: normal appearance, soft. Absent: tenderness Uterus: Present: normal. Absent: tenderness FHR: auscultation normal Extremities: normal Deep Tendon Reflex Grade: Normal +2 - Labs Labs: Abnormal Labs 06/28/21 06/28/21 06/29/21 21:50 21:50 01:40 WBC 12.4 H RBC 3.52 L Urine WBC (Auto) 63.0 H U Epithel Cells (Auto) 17.0 H Membranes Rupture Positive A
--- NOTE | 2021-07-05 12:31 | Progress Note ---
Assessment and Plan A: 1.IUP at 24 5/7 weeks' EDC 10/20/2021 EFW 06/29 1 lb 5 oz 26% 2. PPROM 3. Maternal PCOS 4. Previous C/S Rec: Continue Latency antibiotics to complete 7 days of treatment ( started on 06/29 - discontinue 07/06 ) Twice weekly testing beginning at 27-28 weeks Growth scan q 3 weeks RGS 1 week after completion of the BMZ Monitor for chorioamnionitis, labor, distress Delivery at 34 0/7 weeks gestation , sooner if indicated Subjective - Subjective Date of service: 07/05/21 Principal diagnosis: PPROM, 24 5/7 weeks gestation EDC 10/20/21 Interval history: Reports a small amount of LOF Notes occasional contractions last night She is currently asymptomatic Patient reports: loss of fluid, movement normal, no new complaints, no vaginal bleeding, no contractions Objective - Vital Signs Vital Signs: Vital Signs - 12hr 07/05/21 07/05/21 00:31 00:32 Temperature 97.9 F Pulse Rate 69 Respiratory 16 Rate Blood Pressure 112/59 [Left] O2 Sat by Pulse 98 Oximetry [ Anterior Bilateral Throughout] - Exam Narrative Exam: laying in bed NAD FHR: category 1 Uterine Contraction Monitor Mode: External Uterine Contraction Pattern: Absent - Labs Labs: Abnormal Labs 06/28/21 06/28/21 06/29/21 21:50 21:50 01:40 WBC 12.4 H RBC 3.52 L Urine WBC (Auto) 63.0 H U Epithel Cells (Auto) 17.0 H Membranes Rupture Positive A
[2021-07-05] MEDS: AMOXICILLIN 500 MG CAP PO SCH (14:20)
[2021-07-05] MEDS: PRENATAL VIT27-FE FUMARATE-FOLIC ACID VIT TAB PO SCH (15:38)
[2021-07-06] MEDS: BUTORPHANOL 2 MG/1 ML INJ IV PRN ×2 (00:53→22:51)
[2021-07-06] MEDS: PRENATAL VIT27-FE FUMARATE-FOLIC ACID VIT TAB PO SCH (10:42)
--- NOTE | 2021-07-06 15:39 | Progress Note ---
Assessment and Plan - Patient Problems (1) Premature rupture of membranes in second trimester Status: Acute Plan to address problem: In status quo ante. Subjective - Subjective Date of service: 07/06/21 Principal diagnosis: PPROM, 24 6/7 weeks gestation EDC 10/20/21 Interval history: 23+wks. . CATIE 10/20/20. 07/06/21 23+6wks No complaints. Patient reports: loss of fluid, movement normal, no new complaints, no vaginal bleeding, no contractions Objective - Vital Signs Vital Signs: Vital Signs - 12hr 07/06/21 07/06/21 07/06/21 07:56 08:00 10:42 Temperature 98.1 F Pulse Rate 75 Blood Pressure 92/51 O2 Sat by Pulse Oximetry O2 Sat by Pulse 100 Oximetry [ Anterior Bilateral Throughout] 07/06/21 07/06/21 07/06/21 13:09 13:18 13:25 Temperature Pulse Rate 129 H Blood Pressure O2 Sat by Pulse 88 89 91 Oximetry O2 Sat by Pulse Oximetry [ Anterior Bilateral Throughout] 07/06/21 07/06/21 07/06/21 13:28 13:33 13:39 Temperature Pulse Rate Blood Pressure O2 Sat by Pulse 87 75 L 86 Oximetry O2 Sat by Pulse Oximetry [ Anterior Bilateral Throughout] 07/06/21 07/06/21 07/06/21 13:50 13:59 14:07 Temperature Pulse Rate 57 L 133 H Blood Pressure O2 Sat by Pulse 92 75 L 93 Oximetry O2 Sat by Pulse Oximetry [ Anterior Bilateral Throughout] 07/06/21 14:13 Temperature Pulse Rate 190 H Blood Pressure O2 Sat by Pulse 72 L Oximetry O2 Sat by Pulse Oximetry [ Anterior Bilateral Throughout] - Exam Lungs: Normal air movement Abdomen: Present: soft. Absent: tenderness Uterus: Absent: tenderness FHR: auscultation normal Extremities: normal Deep Tendon Reflex Grade: Normal +2 - Labs Labs: Abnormal Labs 06/28/21 06/28/21 06/29/21 21:50 21:50 01:40 WBC 12.4 H RBC 3.52 L Urine WBC (Auto) 63.0 H U Epithel Cells (Auto) 17.0 H Membranes Rupture Positive A
[2021-07-06] MEDS: ACETAMINOPHEN 325 MG TAB PO PRN (20:21)
[2021-07-07] MEDS: ZOLPIDEM 5 MG TAB PO PRN ×2 (00:43→22:03)
[2021-07-07] MEDS: PRENATAL VIT27-FE FUMARATE-FOLIC ACID VIT TAB PO SCH (10:34)
--- NOTE | 2021-07-07 13:11 | Progress Note ---
Assessment and Plan A: 1.IUP at 25 0/7 weeks' EDC 10/20/2021 EFW 06/29 1 lb 5 oz 26% 2. PPROM 3. Maternal PCOS 4. Previous C/S Rec: RN to place pt back on the monitor for repeat NST after lunch Continuous monitoring is advised if the tracing is not Cat 1 Twice weekly testing beginning at 27-28 weeks Growth scan q 3 weeks RGS 1 week after completion of the BMZ Monitor for chorioamnionitis, labor, distress Delivery at 34 0/7 weeks gestation , sooner if indicated Subjective - Subjective Date of service: 07/07/21 Principal diagnosis: PPROM, 25 0/7 weeks gestation EDC 10/20/21 Interval history: She reports lower back/sciatica pain and occasional contractions, denied bleeding Patient reports: loss of fluid, movement normal, no new complaints, no vaginal bleeding, no contractions Objective - Vital Signs Vital Signs: Vital Signs - 12hr 07/07/21 07/07/21 07/07/21 03:14 05:58 08:25 Temperature 98.2 F 98.3 F O2 Sat by Pulse 97 Oximetry [ Anterior Bilateral Throughout] - Exam Narrative Exam: laying in bed NAD Abdomen: Present: normal appearance FHR: other (FHT reviewed with the RN - decels were noted at 7-8am , moderate variability was noted toco no contractions ) - Labs Labs: Abnormal Labs 06/28/21 06/28/21 06/29/21 21:50 21:50 01:40 WBC 12.4 H RBC 3.52 L Urine WBC (Auto) 63.0 H U Epithel Cells (Auto) 17.0 H Membranes Rupture Positive A Laboratory Results - last 24 hr 07/06/21 07/06/21 07/06/21 22:08 22:08 22:08 Hep Bs Antigen Nonreactive Hepatitis C Antibody Non-reactive HIV 1&2 Antibody Rapid HIV P24 Antigen Blood Type O POSITIVE Antibody Screen Negative 07/06/21 22:08 Hep Bs Antigen Hepatitis C Antibody HIV 1&2 Antibody Rapid Non react HIV P24 Antigen Non react Blood Type Antibody Screen
[2021-07-07] MEDS: BUTORPHANOL 2 MG/1 ML INJ IV PRN (18:15)
--- NOTE | 2021-07-07 18:33 | Progress Note ---
Assessment and Plan - Patient Problems (1) Premature rupture of membranes in second trimester Current Visit: No Status: Acute Plan to address problem: For RGS tomorrow. Continue mgt. Subjective - Subjective Date of service: 07/07/21 Principal diagnosis: PPROM, 25 0/7 weeks gestation EDC 10/20/21 Interval history: 23+wks. . CATIE 10/20/20. 07/07/21 25wks No complaints. Patient reports: loss of fluid, movement normal, no new complaints, no vaginal bleeding, no contractions Objective - Vital Signs Vital Signs: Vital Signs - 12hr 07/07/21 07/07/21 08:25 13:22 Pulse Rate 96 H Blood Pressure 109/59 O2 Sat by Pulse 97 Oximetry [ Anterior Bilateral Throughout] - Exam Narrative Exam: no complaints. Lungs: Normal air movement Abdomen: Absent: tenderness Uterus: Absent: tenderness FHR: auscultation normal Extremities: normal Deep Tendon Reflex Grade: Normal +2 - Labs Labs: Abnormal Labs 06/28/21 06/28/21 06/29/21 21:50 21:50 01:40 WBC 12.4 H RBC 3.52 L Urine WBC (Auto) 63.0 H U Epithel Cells (Auto) 17.0 H Membranes Rupture Positive A Laboratory Results - last 24 hr 07/06/21 07/06/21 07/06/21 22:08 22:08 22:08 Hep Bs Antigen Nonreactive Hepatitis C Antibody Non-reactive HIV 1&2 Antibody Rapid HIV P24 Antigen Blood Type O POSITIVE Antibody Screen Negative 07/06/21 22:08 Hep Bs Antigen Hepatitis C Antibody HIV 1&2 Antibody Rapid Non react HIV P24 Antigen Non react Blood Type Antibody Screen
[2021-07-07] MEDS: DOCUSATE SODIUM 100 MG CAP PO PRN (22:03)
[2021-07-08] MEDS: PRENATAL VIT27-FE FUMARATE-FOLIC ACID VIT TAB PO SCH (10:16)
--- NOTE | 2021-07-08 11:15 | Progress Note ---
Assessment and Plan - Patient Problems (1) Premature rupture of membranes in second trimester Current Visit: No Status: Acute Plan to address problem: for glucola screen and cbc today. Subjective - Subjective Date of service: 07/08/21 Principal diagnosis: PPROM, 25 1/7 weeks gestation EDC 10/20/21 Interval history: 23+wks. . CATIE 10/20/20. 07/08/21 25+1wks No complaints. Patient reports: loss of fluid, movement normal, no new complaints, no vaginal bleeding, no contractions Objective - Vital Signs Vital Signs: Vital Signs - 12hr 07/07/21 07/07/21 07/07/21 23:16 23:21 23:26 Temperature Pulse Rate 104 H 104 H 103 H Respiratory Rate Blood Pressure O2 Sat by Pulse 98 98 97 Oximetry O2 Sat by Pulse Oximetry [ Anterior Bilateral Throughout] 07/07/21 07/07/21 07/07/21 23:31 23:36 23:39 Temperature Pulse Rate 103 H 100 H 59 L Respiratory Rate Blood Pressure O2 Sat by Pulse 99 99 93 Oximetry O2 Sat by Pulse Oximetry [ Anterior Bilateral Throughout] 07/07/21 07/07/21 07/07/21 23:44 23:45 23:49 Temperature Pulse Rate 144 H 132 H Respiratory Rate Blood Pressure O2 Sat by Pulse 79 L 78 L 81 L Oximetry O2 Sat by Pulse Oximetry [ Anterior Bilateral Throughout] 07/08/21 07/08/21 07/08/21 08:04 08:05 08:06 Temperature Pulse Rate 81 85 Respiratory Rate Blood Pressure 97/56 O2 Sat by Pulse 93 100 Oximetry O2 Sat by Pulse 100 Oximetry [ Anterior Bilateral Throughout] 07/08/21 08:10 Temperature 98.5 F Pulse Rate Respiratory 17 Rate Blood Pressure O2 Sat by Pulse 100 Oximetry O2 Sat by Pulse Oximetry [ Anterior Bilateral Throughout] - Exam Lungs: Normal air movement Abdomen: Present: normal appearance. Absent: tenderness Uterus: Absent: tenderness FHR: auscultation normal Extremities: normal Deep Tendon Reflex Grade: Normal +2 - Labs Labs: Abnormal Labs 06/28/21 06/28/21 06/29/21 21:50 21:50 01:40 WBC 12.4 H RBC 3.52 L Urine WBC (Auto) 63.0 H U Epithel Cells (Auto) 17.0 H Membranes Rupture Positive A
[2021-07-08 11:30] LABS: Basophils % (Auto) 0.2 % (0.0-1.8); Eosinophils # (Auto) 0.1 K/mm3 (0.0-0.4); Eosinophils % (Auto) 0.6 % (0.0-4.3); Hematocrit 34.3 % (30.3-42.9); Hemoglobin 10.8 gm/dl (10.1-14.3); Lymphocytes # (Auto) 2.2 K/mm3 (1.2-5.4); Lymphocytes % (Auto) 15.6 % (13.4-35.0); Mean Corpuscular HGB Conc 32 % (30-34); Mean Corpuscular Volume 92 fl (79-97); Monocytes % (Auto) 7.2 % (0.0-7.3); Platelet Count 329 K/mm3 (140-440); Red Blood Count 3.73 M/mm3 (3.65-5.03); Red Cell Distribution Width 14.4 % (13.2-15.2)
[2021-07-08] MEDS: BUTORPHANOL 2 MG/1 ML INJ IV PRN ×2 (11:33→20:25)
[2021-07-08] MEDS: DOCUSATE SODIUM 100 MG CAP PO PRN (20:32)
[2021-07-09] MEDS: ACETAMINOPHEN 325 MG TAB PO PRN ×2 (11:08→19:50)
[2021-07-09] MEDS: PRENATAL VIT27-FE FUMARATE-FOLIC ACID VIT TAB PO SCH (11:08)
--- NOTE | 2021-07-09 11:12 | Progress Note ---
Assessment and Plan - Patient Problems (1) Premature rupture of membranes in second trimester Current Visit: No Status: Acute Plan to address problem: For 3 HR glucose tolerance test. Subjective - Subjective Date of service: 07/09/21 Principal diagnosis: PPROM, 25 2/7 weeks gestation EDC 10/20/21 Interval history: 23+wks. . CATIE 10/20/20. 07/09/21 25+2wks No complaints. Patient reports: loss of fluid, movement normal, no new complaints, no vaginal bleeding, no contractions Objective - Vital Signs Vital Signs: Vital Signs - 12hr 07/09/21 07/09/21 07/09/21 01:40 03:10 03:11 Temperature 98.0 F Pulse Rate 77 Respiratory Rate Blood Pressure Blood Pressure [Left] Blood Pressure [Right] O2 Sat by Pulse 91 99 Oximetry O2 Sat by Pulse Oximetry [ Anterior Bilateral Throughout] 07/09/21 07/09/21 07/09/21 03:13 03:15 03:16 Temperature 98.4 F Pulse Rate 66 71 Respiratory Rate Blood Pressure 97/55 Blood Pressure [Left] Blood Pressure [Right] O2 Sat by Pulse 99 Oximetry O2 Sat by Pulse Oximetry [ Anterior Bilateral Throughout] 07/09/21 07/09/21 07/09/21 03:21 03:26 03:31 Temperature Pulse Rate 79 82 77 Respiratory Rate Blood Pressure Blood Pressure [Left] Blood Pressure [Right] O2 Sat by Pulse 98 98 98 Oximetry O2 Sat by Pulse Oximetry [ Anterior Bilateral Throughout] 07/09/21 07/09/21 07/09/21 03:36 03:41 03:46 Temperature Pulse Rate 82 84 78 Respiratory Rate Blood Pressure Blood Pressure [Left] Blood Pressure [Right] O2 Sat by Pulse 98 98 97 Oximetry O2 Sat by Pulse Oximetry [ Anterior Bilateral Throughout] 07/09/21 07/09/21 07/09/21 03:51 03:56 04:01 Temperature Pulse Rate 83 78 80 Respiratory Rate Blood Pressure Blood Pressure [Left] Blood Pressure [Right] O2 Sat by Pulse 97 97 98 Oximetry O2 Sat by Pulse Oximetry [ Anterior Bilateral Throughout] 07/09/21 07/09/21 07/09/21 04:06 04:11 04:16 Temperature Pulse Rate 80 88 76 Respiratory Rate Blood Pressure Blood Pressure [Left] Blood Pressure [Right] O2 Sat by Pulse 98 97 97 Oximetry O2 Sat by Pulse Oximetry [ Anterior Bilateral Throughout] 07/09/21 07/09/21 07/09/21 04:21 04:26 04:31 Temperature Pulse Rate 80 80 83 Respiratory Rate Blood Pressure Blood Pressure [Left] Blood Pressure [Right] O2 Sat by Pulse 98 98 96 Oximetry O2 Sat by Pulse Oximetry [ Anterior Bilateral Throughout] 07/09/21 07/09/21 07/09/21 04:36 04:41 04:46 Temperature Pulse Rate 97 H 88 89 Respiratory Rate Blood Pressure Blood Pressure [Left] Blood Pressure [Right] O2 Sat by Pulse 97 97 98 Oximetry O2 Sat by Pulse Oximetry [ Anterior Bilateral Throughout] 07/09/21 07/09/21 07/09/21 04:51 04:56 05:01 Temperature Pulse Rate 89 89 87 Respiratory Rate Blood Pressure Blood Pressure [Left] Blood Pressure [Right] O2 Sat by Pulse 98 99 99 Oximetry O2 Sat by Pulse Oximetry [ Anterior Bilateral Throughout] 07/09/21 07/09/21 07/09/21 05:06 05:11 05:16 Temperature Pulse Rate 86 101 H 79 Respiratory Rate Blood Pressure Blood Pressure [Left] Blood Pressure [Right] O2 Sat by Pulse 98 100 99 Oximetry O2 Sat by Pulse Oximetry [ Anterior Bilateral Throughout] 07/09/21 07/09/21 07/09/21 07:19 07:20 08:44 Temperature 98.0 F Pulse Rate 81 86 Respiratory 14 Rate Blood Pressure 106/61 Blood Pressure [Left] Blood Pressure 106/61 [Right] O2 Sat by Pulse 89 99 89 Oximetry O2 Sat by Pulse 98 Oximetry [ Anterior Bilateral Throughout] 07/09/21 07/09/21 07/09/21 08:45 08:50 08:55 Temperature Pulse Rate 139 H 91 H 91 H Respiratory Rate Blood Pressure Blood Pressure [Left] Blood Pressure [Right] O2 Sat by Pulse 99 99 98 Oximetry O2 Sat by Pulse Oximetry [ Anterior Bilateral Throughout] 07/09/21 07/09/21 07/09/21 09:00 09:04 09:09 Temperature Pulse Rate 94 H 86 88 Respiratory Rate Blood Pressure Blood Pressure [Left] Blood Pressure [Right] O2 Sat by Pulse 99 98 98 Oximetry O2 Sat by Pulse Oximetry [ Anterior Bilateral Throughout] 07/09/21 07/09/21 07/09/21 09:15 09:19 09:25 Temperature Pulse Rate 88 88 84 Respiratory Rate Blood Pressure Blood Pressure [Left] Blood Pressure [Right] O2 Sat by Pulse 99 99 99 Oximetry O2 Sat by Pulse Oximetry [ Anterior Bilateral Throughout] 07/09/21 07/09/21 07/09/21 09:30 09:35 09:39 Temperature Pulse Rate 89 91 H 89 Respiratory Rate Blood Pressure Blood Pressure [Left] Blood Pressure [Right] O2 Sat by Pulse 99 99 99 Oximetry O2 Sat by Pulse Oximetry [ Anterior Bilateral Throughout] 07/09/21 07/09/21 07/09/21 09:45 09:50 09:55 Temperature Pulse Rate 95 H 92 H 100 H Respiratory Rate Blood Pressure Blood Pressure [Left] Blood Pressure [Right] O2 Sat by Pulse 99 97 98 Oximetry O2 Sat by Pulse Oximetry [ Anterior Bilateral Throughout] 07/09/21 07/09/21 07/09/21 10:51 10:52 10:53 Temperature 97.8 F Pulse Rate 79 83 85 Respiratory 14 Rate Blood Pressure 108/51 Blood Pressure 108/51 [Left] Blood Pressure [Right] O2 Sat by Pulse 77 L 99 99 Oximetry O2 Sat by Pulse Oximetry [ Anterior Bilateral Throughout] - Exam Lungs: Normal air movement Abdomen: Present: normal appearance, soft, normal bowel sounds. Absent: tenderness Uterus: Present: normal. Absent: tenderness FHR: auscultation normal Extremities: normal Deep Tendon Reflex Grade: Normal +2 - Labs Labs: Abnormal Labs 06/28/21 06/28/21 06/29/21 21:50 21:50 01:40 WBC 12.4 H RBC 3.52 L [place] # (Auto) Seg Neutrophils % Seg Neutrophils # Post-Glucola Glucose Urine WBC (Auto) 63.0 H U Epithel Cells (Auto) 17.0 H Membranes Rupture Positive A 07/08/21 07/09/21 10:52 08:24 WBC 14.3 H RBC [place] # (Auto) 1.0 H Seg Neutrophils % 76.4 H Seg Neutrophils # 10.9 H Post-Glucola Glucose 142 H Urine WBC (Auto) U Epithel Cells (Auto) Membranes Rupture Laboratory Results - last 24 hr 07/08/21 07/08/21 07/09/21 10:52 10:52 06:40 WBC 14.3 H RBC 3.73 Hgb 10.8 Hct 34.3 MCV 92 MCH 29 MCHC 32 RDW 14.4 Plt Count 329 Lymph % (Auto) 15.6 [place] % (Auto) 7.2 Eos % (Auto) 0.6 Baso % (Auto) 0.2 Lymph # (Auto) 2.2 [place] # (Auto) 1.0 H Eos # (Auto) 0.1 Baso # (Auto) 0.0 Seg Neutrophils % 76.4 H Seg Neutrophils # 10.9 H Post-Glucola Glucose 86 TNR 07/09/21 08:24 WBC RBC Hgb Hct MCV MCH MCHC RDW Plt Count Lymph % (Auto) [place] % (Auto) Eos % (Auto) Baso % (Auto) Lymph # (Auto) [place] # (Auto) Eos # (Auto) Baso # (Auto) Seg Neutrophils % Seg Neutrophils # Post-Glucola Glucose 142 H
--- NOTE | 2021-07-09 12:38 | Progress Note ---
Assessment and Plan : 1.IUP at 25 2/7 weeks' EDC 10/20/2021 EFW 06/29 1 lb 5 oz 26% 2. PPROM 3. Maternal PCOS 4. Previous C/S 5. Abnl RGS Rec: Continue to monitor for chorioamnionitis, distress, labor For 3hr GTT tomorrow - RGS discussed with pt Twice weekly testing beginning at 27-28 weeks Growth scan q 3 weeks Delivery at 34 0/7 weeks gestation , sooner if indicated Subjective - Subjective Date of service: 07/09/21 Principal diagnosis: PPROM, 25 2/7 weeks gestation EDC 10/20/21 Interval history: Has no complaints RGS was abnl NST earlier this am reported as initially Cat II ( variables )- then inproved to Cat I for repeat NST at 3pm per RN Patient reports: loss of fluid, movement normal, no new complaints, no vaginal bleeding, no contractions Objective - Vital Signs Vital Signs: Vital Signs - 12hr 07/09/21 07/09/21 07/09/21 01:40 03:10 03:11 Temperature 98.0 F Pulse Rate 77 Respiratory Rate Blood Pressure Blood Pressure [Left] Blood Pressure [Right] O2 Sat by Pulse 91 99 Oximetry O2 Sat by Pulse Oximetry [ Anterior Bilateral Throughout] 07/09/21 07/09/21 07/09/21 03:13 03:15 03:16 Temperature 98.4 F Pulse Rate 66 71 Respiratory Rate Blood Pressure 97/55 Blood Pressure [Left] Blood Pressure [Right] O2 Sat by Pulse 99 Oximetry O2 Sat by Pulse Oximetry [ Anterior Bilateral Throughout] 07/09/21 07/09/21 07/09/21 03:21 03:26 03:31 Temperature Pulse Rate 79 82 77 Respiratory Rate Blood Pressure Blood Pressure [Left] Blood Pressure [Right] O2 Sat by Pulse 98 98 98 Oximetry O2 Sat by Pulse Oximetry [ Anterior Bilateral Throughout] 07/09/21 07/09/21 07/09/21 03:36 03:41 03:46 Temperature Pulse Rate 82 84 78 Respiratory Rate Blood Pressure Blood Pressure [Left] Blood Pressure [Right] O2 Sat by Pulse 98 98 97 Oximetry O2 Sat by Pulse Oximetry [ Anterior Bilateral Throughout] 07/09/21 07/09/21 07/09/21 03:51 03:56 04:01 Temperature Pulse Rate 83 78 80 Respiratory Rate Blood Pressure Blood Pressure [Left] Blood Pressure [Right] O2 Sat by Pulse 97 97 98 Oximetry O2 Sat by Pulse Oximetry [ Anterior Bilateral Throughout] 07/09/21 07/09/21 07/09/21 04:06 04:11 04:16 Temperature Pulse Rate 80 88 76 Respiratory Rate Blood Pressure Blood Pressure [Left] Blood Pressure [Right] O2 Sat by Pulse 98 97 97 Oximetry O2 Sat by Pulse Oximetry [ Anterior Bilateral Throughout] 07/09/21 07/09/21 07/09/21 04:21 04:26 04:31 Temperature Pulse Rate 80 80 83 Respiratory Rate Blood Pressure Blood Pressure [Left] Blood Pressure [Right] O2 Sat by Pulse 98 98 96 Oximetry O2 Sat by Pulse Oximetry [ Anterior Bilateral Throughout] 07/09/21 07/09/21 07/09/21 04:36 04:41 04:46 Temperature Pulse Rate 97 H 88 89 Respiratory Rate Blood Pressure Blood Pressure [Left] Blood Pressure [Right] O2 Sat by Pulse 97 97 98 Oximetry O2 Sat by Pulse Oximetry [ Anterior Bilateral Throughout] 07/09/21 07/09/21 07/09/21 04:51 04:56 05:01 Temperature Pulse Rate 89 89 87 Respiratory Rate Blood Pressure Blood Pressure [Left] Blood Pressure [Right] O2 Sat by Pulse 98 99 99 Oximetry O2 Sat by Pulse Oximetry [ Anterior Bilateral Throughout] 07/09/21 07/09/21 07/09/21 05:06 05:11 05:16 Temperature Pulse Rate 86 101 H 79 Respiratory Rate Blood Pressure Blood Pressure [Left] Blood Pressure [Right] O2 Sat by Pulse 98 100 99 Oximetry O2 Sat by Pulse Oximetry [ Anterior Bilateral Throughout] 07/09/21 07/09/21 07/09/21 07:19 07:20 08:44 Temperature 98.0 F Pulse Rate 81 86 Respiratory 14 Rate Blood Pressure 106/61 Blood Pressure [Left] Blood Pressure 106/61 [Right] O2 Sat by Pulse 89 99 89 Oximetry O2 Sat by Pulse 98 Oximetry [ Anterior Bilateral Throughout] 07/09/21 07/09/21 07/09/21 08:45 08:50 08:55 Temperature Pulse Rate 139 H 91 H 91 H Respiratory Rate Blood Pressure Blood Pressure [Left] Blood Pressure [Right] O2 Sat by Pulse 99 99 98 Oximetry O2 Sat by Pulse Oximetry [ Anterior Bilateral Throughout] 07/09/21 07/09/21 07/09/21 09:00 09:04 09:09 Temperature Pulse Rate 94 H 86 88 Respiratory Rate Blood Pressure Blood Pressure [Left] Blood Pressure [Right] O2 Sat by Pulse 99 98 98 Oximetry O2 Sat by Pulse Oximetry [ Anterior Bilateral Throughout] 07/09/21 07/09/21 07/09/21 09:15 09:19 09:25 Temperature Pulse Rate 88 88 84 Respiratory Rate Blood Pressure Blood Pressure [Left] Blood Pressure [Right] O2 Sat by Pulse 99 99 99 Oximetry O2 Sat by Pulse Oximetry [ Anterior Bilateral Throughout] 07/09/21 07/09/21 07/09/21 09:30 09:35 09:39 Temperature Pulse Rate 89 91 H 89 Respiratory Rate Blood Pressure Blood Pressure [Left] Blood Pressure [Right] O2 Sat by Pulse 99 99 99 Oximetry O2 Sat by Pulse Oximetry [ Anterior Bilateral Throughout] 07/09/21 07/09/21 07/09/21 09:45 09:50 09:55 Temperature Pulse Rate 95 H 92 H 100 H Respiratory Rate Blood Pressure Blood Pressure [Left] Blood Pressure [Right] O2 Sat by Pulse 99 97 98 Oximetry O2 Sat by Pulse Oximetry [ Anterior Bilateral Throughout] 07/09/21 07/09/21 07/09/21 10:51 10:52 10:53 Temperature 97.8 F Pulse Rate 79 83 85 Respiratory 14 Rate Blood Pressure 108/51 Blood Pressure 108/51 [Left] Blood Pressure [Right] O2 Sat by Pulse 77 L 99 99 Oximetry O2 Sat by Pulse Oximetry [ Anterior Bilateral Throughout] - Exam Narrative Exam: laying in bed NAD Abdomen: Present: normal appearance Extremities: normal - Labs Labs: Abnormal Labs 06/28/21 06/28/21 06/29/21 21:50 21:50 01:40 WBC 12.4 H RBC 3.52 L [place] # (Auto) Seg Neutrophils % Seg Neutrophils # Post-Glucola Glucose Urine WBC (Auto) 63.0 H U Epithel Cells (Auto) 17.0 H Membranes Rupture Positive A 07/08/21 07/09/21 10:52 08:24 WBC 14.3 H RBC [place] # (Auto) 1.0 H Seg Neutrophils % 76.4 H Seg Neutrophils # 10.9 H Post-Glucola Glucose 142 H Urine WBC (Auto) U Epithel Cells (Auto) Membranes Rupture Laboratory Results - last 24 hr 12/28/21 12/28/21 06:40 08:24 Post-Glucola Glucose TNR 142 H
[2021-07-09] MEDS: LACTATED RINGERS 1,000 ML IV SCH (16:27)
[2021-07-09] MEDS: ZOLPIDEM 5 MG TAB PO PRN (23:20)
--- NOTE | 2021-07-10 12:38 | Progress Note ---
Assessment and Plan - Patient Problems (1) Premature rupture of membranes in second trimester Current Visit: No Status: Acute Plan to address problem: Awaiting OGTT and Vit D assay results. Patient will be allowed to sit 30 minutes outside for sunshine daily, when possible. Subjective - Subjective Date of service: 07/10/21 Principal diagnosis: PPROM, 25 3/7 weeks gestation EDC 10/20/21 Interval history: 23+wks. . CATIE 10/20/20. 07/10/21 25+3wks No complaints. Patient reports: loss of fluid, movement normal, no new complaints, no vaginal bleeding, no contractions Objective - Vital Signs Vital Signs: Vital Signs - 12hr 07/10/21 07/10/21 07/10/21 00:37 00:42 00:47 Temperature Pulse Rate 91 H 89 92 H Respiratory Rate Blood Pressure Blood Pressure [Left] O2 Sat by Pulse 100 100 100 Oximetry O2 Sat by Pulse Oximetry [ Anterior Bilateral Throughout] 07/10/21 07/10/21 07/10/21 00:52 00:55 00:57 Temperature Pulse Rate 96 H 99 H 92 H Respiratory Rate Blood Pressure Blood Pressure [Left] O2 Sat by Pulse 100 92 96 Oximetry O2 Sat by Pulse Oximetry [ Anterior Bilateral Throughout] 07/10/21 07/10/21 07/10/21 01:02 01:07 01:12 Temperature Pulse Rate 99 H 82 87 Respiratory Rate Blood Pressure Blood Pressure [Left] O2 Sat by Pulse 98 99 97 Oximetry O2 Sat by Pulse Oximetry [ Anterior Bilateral Throughout] 07/10/21 07/10/21 07/10/21 01:17 01:22 01:27 Temperature Pulse Rate 90 84 83 Respiratory Rate Blood Pressure Blood Pressure [Left] O2 Sat by Pulse 98 100 97 Oximetry O2 Sat by Pulse Oximetry [ Anterior Bilateral Throughout] 07/10/21 07/10/21 07/10/21 01:32 01:37 01:42 Temperature Pulse Rate 87 85 88 Respiratory Rate Blood Pressure Blood Pressure [Left] O2 Sat by Pulse 98 97 96 Oximetry O2 Sat by Pulse Oximetry [ Anterior Bilateral Throughout] 07/10/21 07/10/21 07/10/21 01:47 01:52 01:57 Temperature Pulse Rate 90 86 87 Respiratory Rate Blood Pressure Blood Pressure [Left] O2 Sat by Pulse 97 97 97 Oximetry O2 Sat by Pulse Oximetry [ Anterior Bilateral Throughout] 07/10/21 07/10/21 07/10/21 02:02 02:07 02:09 Temperature Pulse Rate 85 87 85 Respiratory Rate Blood Pressure 102/66 Blood Pressure [Left] O2 Sat by Pulse 96 97 Oximetry O2 Sat by Pulse Oximetry [ Anterior Bilateral Throughout] 07/10/21 07/10/21 07/10/21 02:10 08:21 08:34 Temperature 98.2 F Pulse Rate 82 Respiratory Rate Blood Pressure Blood Pressure [Left] O2 Sat by Pulse 94 87 Oximetry O2 Sat by Pulse 100 Oximetry [ Anterior Bilateral Throughout] 07/10/21 07/10/21 07/10/21 08:36 08:37 08:38 Temperature Pulse Rate 98 H 91 H Respiratory Rate Blood Pressure 111/63 Blood Pressure [Left] O2 Sat by Pulse 76 L 100 Oximetry O2 Sat by Pulse Oximetry [ Anterior Bilateral Throughout] 07/10/21 07/10/21 07/10/21 08:40 08:42 08:47 Temperature 98.2 F Pulse Rate 96 H 98 H 95 H Respiratory 14 Rate Blood Pressure Blood Pressure 111/63 [Left] O2 Sat by Pulse 100 100 100 Oximetry O2 Sat by Pulse Oximetry [ Anterior Bilateral Throughout] 07/10/21 07/10/21 07/10/21 08:52 08:57 09:02 Temperature Pulse Rate 96 H 94 H 91 H Respiratory Rate Blood Pressure Blood Pressure [Left] O2 Sat by Pulse 99 100 100 Oximetry O2 Sat by Pulse Oximetry [ Anterior Bilateral Throughout] 07/10/21 07/10/21 07/10/21 09:07 09:12 09:17 Temperature Pulse Rate 94 H 90 92 H Respiratory Rate Blood Pressure Blood Pressure [Left] O2 Sat by Pulse 99 99 99 Oximetry O2 Sat by Pulse Oximetry [ Anterior Bilateral Throughout] 07/10/21 07/10/21 07/10/21 09:22 09:27 09:35 Temperature Pulse Rate 101 H 108 H 99 H Respiratory Rate Blood Pressure Blood Pressure [Left] O2 Sat by Pulse 99 99 97 Oximetry O2 Sat by Pulse Oximetry [ Anterior Bilateral Throughout] 07/10/21 07/10/21 07/10/21 09:40 09:45 09:50 Temperature Pulse Rate 95 H 104 H 99 H Respiratory Rate Blood Pressure Blood Pressure [Left] O2 Sat by Pulse 98 98 98 Oximetry O2 Sat by Pulse Oximetry [ Anterior Bilateral Throughout] 07/10/21 07/10/21 07/10/21 09:55 10:00 10:05 Temperature Pulse Rate 102 H 104 H 107 H Respiratory Rate Blood Pressure Blood Pressure [Left] O2 Sat by Pulse 98 98 98 Oximetry O2 Sat by Pulse Oximetry [ Anterior Bilateral Throughout] 07/10/21 07/10/21 07/10/21 10:10 10:15 10:20 Temperature Pulse Rate 97 H 102 H 105 H Respiratory Rate Blood Pressure Blood Pressure [Left] O2 Sat by Pulse 98 98 98 Oximetry O2 Sat by Pulse Oximetry [ Anterior Bilateral Throughout] 07/10/21 07/10/21 07/10/21 10:25 10:30 10:35 Temperature Pulse Rate 102 H 100 H 96 H Respiratory Rate Blood Pressure Blood Pressure [Left] O2 Sat by Pulse 98 98 97 Oximetry O2 Sat by Pulse Oximetry [ Anterior Bilateral Throughout] 07/10/21 07/10/21 10:40 10:45 Temperature Pulse Rate 104 H 102 H Respiratory Rate Blood Pressure Blood Pressure [Left] O2 Sat by Pulse 98 98 Oximetry O2 Sat by Pulse Oximetry [ Anterior Bilateral Throughout] - Exam Lungs: Normal air movement Abdomen: Present: soft. Absent: tenderness Uterus: Absent: tenderness FHR: auscultation normal Extremities: normal Deep Tendon Reflex Grade: Normal +2 - Labs Labs: Abnormal Labs 06/28/21 06/28/21 06/29/21 21:50 21:50 01:40 WBC 12.4 H RBC 3.52 L [place] # (Auto) Seg Neutrophils % Seg Neutrophils # Post-Glucola Glucose Urine WBC (Auto) 63.0 H U Epithel Cells (Auto) 17.0 H Membranes Rupture Positive A 07/08/21 07/09/21 10:52 08:24 WBC 14.3 H RBC [place] # (Auto) 1.0 H Seg Neutrophils % 76.4 H Seg Neutrophils # 10.9 H Post-Glucola Glucose 142 H Urine WBC (Auto) U Epithel Cells (Auto) Membranes Rupture Laboratory Results - last 24 hr 07/10/21 07/10/21 07/10/21 06:00 08:52 10:15 Fasting Glucose 83 Glucose Tolerance Gest Glucose Tolerance 07/10/21 10:52 Fasting Glucose Glucose Tolerance Gest Glucose Tolerance
[2021-07-10] MEDS: LACTATED RINGERS 1,000 ML IV SCH ×2 (13:22→16:40)
[2021-07-10] MEDS: ACETAMINOPHEN 325 MG TAB PO PRN (15:53)
--- NOTE | 2021-07-10 17:02 | Event Note ---
Date: 07/10/21 Saw patient re in the 180s with variables. Reactivity great. Temp 99.8. Patient denied malaise. making urine as normally. No uterine tenderness. M notified.
[2021-07-10 18:09] LABS: Basophils % (Auto) 0.3 % (0.0-1.8); Eosinophils % (Auto) 0.2 % (0.0-4.3); Hematocrit 32.4 % (30.3-42.9); Hemoglobin 10.5 gm/dl (10.1-14.3); Lymphocytes # (Auto) 1.6 K/mm3 (1.2-5.4); Lymphocytes % (Auto) 8.7 % (13.4-35.0); Mean Corpuscular HGB Conc 32 % (30-34); Mean Corpuscular Volume 92 fl (79-97); Monocytes # (Auto) 1.5 K/mm3 (0.0-0.8); Monocytes % (Auto) 8.3 % (0.0-7.3); Platelet Count 293 K/mm3 (140-440); Red Blood Count 3.52 M/mm3 (3.65-5.03); Red Cell Distribution Width 14.3 % (13.2-15.2)
--- NOTE | 2021-07-10 20:01 | Event Note ---
Date: 07/10/21 SHERLY Rios MD called me and advised, at 25+3 wks, "will give the baby the benefit of the doubt and deliver with a category [address] Pena will be in to see patient in the morning." 3Hr OGTT results noted and within normal.
[2021-07-10] MEDS: BUTORPHANOL 2 MG/1 ML INJ IV PRN (21:33)
[2021-07-11] MEDS: LACTATED RINGERS 1,000 ML IV SCH ×2 (05:15→17:35)
[2021-07-11] MEDS: BUTORPHANOL 2 MG/1 ML INJ IV PRN (05:16)
[2021-07-11] MEDS ORDERED: AMPICILLIN/NS 2 GM/100 ML 2 GM/100 ML BAG IV ONE (05:32)
[2021-07-11] MEDS ORDERED: MAGNESIUM SULFATE 4 GM/100 ML BAG IV ONE ×2 (06:28→06:36)
[2021-07-11] MEDS ORDERED: MAGNESIUM SULFATE 40GM/1000ML 40 GM/1,000 ML BAG IV ONE (06:28)
[2021-07-11] MEDS ORDERED: MAGNESIUM SULFATE 40GM/1000ML 40 GM/1,000 ML BAG IV SCH (07:00)
[2021-07-11 08:08] LABS: Bilirubin,Urine NEG (Negative); Blood,Urine NEG (Negative); Color,Urine Straw (Yellow); Protein,Urine <15 mg/dL mg/dL (Negative); RBC,Urine < 1.0 /HPF (0.0-6.0); Urobilinogen,Urine < 2.0 mg/dL (<2.0); WBC,Urine < 1.0 /HPF (0.0-6.0)
--- NOTE | 2021-07-11 08:42 | Event Note ---
Date: 07/11/21 Patient reports nausea this am. Contractions are occurring.Temp 99.9 and restarted on antibiotics. tach is persisting with variable decels. WBC was 18+ yesterday. Repeat CBC in progress. Started on MgSO4. IMP: Clinical scenario is supportive of chorioamnionitis. Previous section. Plan: Situation fully discussed with patient and her . Plans in process for delivery marilu. Awaiting advice from SHERLY
[2021-07-11] MEDS ORDERED: AMPICILLIN/NS 1 GM/50 ML 1 GM/50 ML BAG IV SCH (09:30)
[2021-07-11] MEDS ORDERED: METOCLOPRAMIDE 10 MG/2 ML INJ IV NR (09:37)
[2021-07-11] MEDS ORDERED: FAMOTIDINE 20 MG/2 ML INJ IV NR (09:37)
[2021-07-11] MEDS ORDERED: OXYTOCIN DRIP 30 UNITS/500 ML BAG IV SCH ×2 (10:00→13:00)
[2021-07-11] MEDS ORDERED: BICITRA ORAL LIQD 30ML PO NR (10:00)
[2021-07-11] MEDS ORDERED: LACTATED RINGERS 1,000 ML IV SCH (10:00)
[2021-07-11] MEDS ORDERED: ceFAZolin/Water 2 GM/20 ML 2 GM/20 ML SYRINGE IV NR (10:00)
--- NOTE | 2021-07-11 10:10 | Anesthesia Day of Surgery ---
Anesthesia Day of Surgery - Day of Surgery Patient Examined: Yes Patient H&P Reviewed: Yes Patient is NPO: Yes Beta Blockers: No Cardiac Clearance: No Pulmonary Clearance: No David's Test: Negative
--- NOTE | 2021-07-11 10:31 | Anesthesia Consultation ---
Anesthesia Consult and Med Hx Date of service: 07/11/21 - Airway Anesthetic Teeth Evaluation: Poor ROM Head & Neck: Adequate Mental/Hyoid Distance: Adequate Mallampati Class: Class II Intubation Access Assessment: Probably Good - Pulmonary Exam CTA: Yes - Cardiac Exam Cardiac Exam: RRR - Pre-Operative Health Status ASA Pre-Surgery Classification: ASA3, Emergency Proposed Anesthetic Plan: Spinal - Pulmonary Hx Smoking: No (former smoker 2019) Hx Asthma: No Hx Respiratory Symptoms: No SOB: No COPD: No Home Oxygen Therapy: No Hx Pneumonia: No Hx Sleep Apnea: No - Cardiovascular System Hx Hypertension: Yes Hx Coronary Artery Disease: No Hx Heart Attack/AMI: No Hx Angina: No Hx Percutaneous Transluminal Coronary Angioplasty (PTCA): No Hx Cardia Arrhythmia: No Hx Pacemaker: No Hx Internal Defibrillator: No Hx Valvular Heart Disease: No Hx Heart Murmur: No Hx Peripheral Vascular Disease: No - Central Nervous System Hx Neuromuscular Disorder: No Hx Seizures: No CVA: No Hx Back Pain: Yes (Sciatica pain) Hx Psychiatric Problems: No - Gastrointestinal Hx Ulcer: No Hx Gastroesophageal Reflux Disease: No - Endocrine Hx Renal Disease: No Hx End Stage Renal Disease: No Hx Cirrhosis: No Hx Liver Disease: No Hx Insulin Dependent Diabetes: No Hx Non-Insulin Dependent Diabetes: No Hx Thyroid Disease: No Hx Hypothyroidism: No Hx Hyperthyroidism: No - Hematic Hx Anemia: No Hx Sickle Cell Disease: No - Other Systems Hx Alcohol Use: No Hx Substance Use: No Hx Cancer: No Hx Obesity: No - Additional Comments Anesthesia Medical History Comments: [id number] Epidural, no anesthesia complications
[2021-07-11 10:46] LABS: Basophils % (Auto) 0.2 % (0.0-1.8); Hematocrit 30.9 % (30.3-42.9); Hemoglobin 10.1 gm/dl (10.1-14.3); Lymphocytes # (Auto) 1.3 K/mm3 (1.2-5.4); Lymphocytes % (Auto) 5.7 % (13.4-35.0); Mean Corpuscular HGB Conc 33 % (30-34); Mean Corpuscular Volume 91 fl (79-97); Monocytes # (Auto) 1.7 K/mm3 (0.0-0.8); Monocytes % (Auto) 7.2 % (0.0-7.3); Platelet Count 291 K/mm3 (140-440); Red Blood Count 3.41 M/mm3 (3.65-5.03); Red Cell Distribution Width 14.4 % (13.2-15.2)
[2021-07-11 10:47] LABS: Basophils # (Auto) 0.1 K/mm3 (0.0-0.1)
--- NOTE | 2021-07-11 12:19 | Progress Note ---
Spinal Anesthesia Block - Spinal Anesthesia Block Start Time: 10:43 Stop Time: 10:47 Performed by:: ASH CLAROS Procedure: Patient IDed, H&P reviewed, all questions and concerns were answered, and consent was signed. Timeout was performed at bedside. Patient in sitting position. Sterile prep and drape was performed. [3] ml of 1% lidocaine skin wheal at L[3]- L [4]. Needle introducer advanced. 25 gauge spinal needle advanced. Clear, free flowing CSF. negative blood, negative paresthesia. Spinal dose given. All needles removed. Patient tolerated procedure.
--- NOTE | 2021-07-11 12:21 | Progress Note ---
Regional Anesthesia Block - Regional Anesthesia Block Start Time: 11:57 Stop Time: 12:02 Performed By:: ASH CLAROS Procedure: Patient consented for TAP block for post surgical pain management. Patient identified, monitors placed, and time out performed. TAP identified bilaterally via ultrasound. Skin prepped bilaterally with [chlorhexidine] and [22g stimuplex] needle advanced to the TAP. [Marcaine 0.25% 30ml] injected under ultrasound guidance on the [left] side. [Marcaine 0.25% 30ml] injected under ultrasound guidance on the [right] side. Negative aspiration every 5mL, No change in heart rate or rhythm. Patient tolerated the procedure well. No apparent complications seen.
[2021-07-11] MEDS ORDERED: LANOLIN/ZINC/DIMETHICONE (LANSINOH) 7 GM TP PRN (12:32)
[2021-07-11] MEDS ORDERED: ONDANSETRON 4 MG/2 ML INJ IV PRN (12:32)
[2021-07-11] MEDS ORDERED: ACETAMINOPHEN 325 MG TAB PO PRN (12:32)
[2021-07-11] MEDS ORDERED: KETOROLAC 30 MG/1 ML INJ IV PRN ×2 (12:32)
[2021-07-11] MEDS ORDERED: WITCH HAZEL/ GLYCERIN PAD TP PRN (12:32)
[2021-07-11] MEDS ORDERED: MORPHINE 2 MG/1 ML INJ IV PRN (12:32)
[2021-07-11] MEDS ORDERED: NALOXONE 0.4 MG/1 ML INJ IV PRN (12:32)
[2021-07-11] MEDS ORDERED: IBUPROFEN 600 MG TAB PO PRN (12:32)
--- NOTE | 2021-07-11 12:50 | Operative Report ---
Operative Report Operative Report: Date of surgery: July 11, 2021 Preoperative diagnoses: PPROM, 25+4 weeks gestation, previous section, chorioamnionitis Postoperative diagnoses: The same. Operation: Lower segment transverse delivery Surgeon:Radha Mathews MD Printing Services Coordinator: Kate Last CRNA Anesthesia: Spinal block Estimated blood loss: 377 mL Complications: None Findings: There was a live baby girl in vertex presentation with a snug loop of umbilical cord around its neck. There was minimal yellowish amniotic fluid seen. The placenta was difficult to separate from the decidua over the anterior lower uterus and was taken out in pieces. Both ovaries and fallopian tubes were grossly normal the uterus was grossly normal barring the incision in the lower segment. No scar tissue was found within the peritoneal cavity. Procedure in detail: The patient was taken to the operating room and given a spinal block. Patient was placed in the straight supine position and a Monaco catheter was inserted. The patient was prepped in the abdomen. The drapes were placed. A timeout was done. With the go ahead from the [employer], a Pfannenstiel incision was made. This incision was carried across the subcutaneous layer to the fascia which was also divided transversely. The recti abdominis muscle flaps were stripped from the fascia using a combination of blunt and sharp dissections. The muscles were in the midline to gain access to the anterior parietal peritoneum which was divided after excluding any underlying viscera. The access to the peritoneal cavity was then widened by manual stretching. The bladder blade was applied. The utero vesicle peritoneal flap was divided transversely allowing the bladder to be displaced caudally. The uterine incision was placed in the lower segment transversely. The uterine incision was carried to the decidual layer. The uterine incision was extended on both sides using the bandage scissors. The amniotic sac did not contain much fluid, with the little fluid being yellowish in color. The head was lifted out of the false maternal pelvis and delivered through the incision using fundal pressure. The airways were bulb suctioned beginning with the mouth. Continuing fundal pressure combined with traction on the mandibular processes of the jaw delivered the rest of the baby. The umbilical cord was double clamped after 1 minute and divided. The baby was carefully transferred to the pediatric team. The placenta was manually removed from the uterine cavity. The uterine cavity was explored and was empty of any placental remnants. The uterine incision was repaired in 2 layers with #1 Vicryl. The surgical line on the uterus was hemostatic. Blood and clots were cleared from the peritoneal cavity. The anterior parietal peritoneum was repaired with #1 Vicryl. The fascia was repaired with #1 Vicryl. The subcutaneous layer was made hemostatic using the Bovie before the skin was closed subcuticularly with 4-0 Vicryl. There were no complications. The estimated blood loss was 377 mL. All sponges and instrument counts were correct. Patient was safely transferred to the recovery room.
--- NOTE | 2021-07-11 12:54 | Event Note ---
Date: 07/11/21 I spoke with M Dr. Pena and provided updates on the patient's clinical status including emergent concerns about chorio amnionitis. Dr. Pena agreed with the plan to proceed with delivery.
[2021-07-11] MEDS: SIMETHICONE 80 MG CHEW TAB PO PRN ×2 (15:09→22:06)
--- NOTE | 2021-07-11 15:33 | Post Anesthesia Evaluation ---
- Post Anesthesia Evaluation Patient Participated: Yes Airway Patent: Yes Stable Respiratory Function: Yes Nausea/Vomiting: No Temp > 96.8F: Yes Pain Manageable: Yes Adequeate Hydration: Yes Anesthesia Complications: No Block Receding Appropriately: Yes Patient on Ventilator: No
[2021-07-11] MEDS: MORPHINE 4 MG/1 ML INJ IV PRN ×2 (16:26→22:06)
[2021-07-11] MEDS: HYDROcodone/ACETAMINOPHEN 5-325 MG TAB PO PRN (18:35)
[2021-07-12 00:44] LABS: Hematocrit 31.7 % (30.3-42.9)
[2021-07-12] MEDS: LACTATED RINGERS 1,000 ML IV SCH (00:59)
[2021-07-12] MEDS: HYDROcodone/ACETAMINOPHEN 5-325 MG TAB PO PRN ×3 (01:08→12:17)
[2021-07-12] MEDS: SIMETHICONE 80 MG CHEW TAB PO PRN (07:41)
[2021-07-12] MEDS: IBUPROFEN 800 MG TAB PO PRN ×2 (09:28→14:27)
[2021-07-12] MEDS ORDERED: FERROUS SULFATE 325 MG TAB PO SCH (10:00)
--- NOTE | 2021-07-12 11:53 | Progress Note ---
Assessment and Plan - Patient Problems (1) Premature rupture of membranes in second trimester Current Visit: No Status: Acute (2) Status post delivery Current Visit: Yes Status: Acute Plan to address problem: doing great. Stable for d/c home prn. Subjective - Subjective Date of service: 07/12/21 Principal diagnosis: PPROM, 25 3/7 weeks gestation EDC 10/20/21 Interval history: 23+wks. . CATIE 10/20/20. 07/10/21 25+3wks No complaints. 07/12/21 Sectioned yesterday. Doing well today and may go home later today. Patient reports: appetite normal, voiding normally, pain well controlled, ambulating normally Crooks: doing well, in NICU Objective - Vital Signs Latest vital signs: Vital Signs Temp Pulse Resp BP BP Pulse Ox Pulse Ox 07/12/21 08:16 98.1 F 92 H 18 92/46 97 07/12/21 06:12 98 07/12/21 05:47 98.4 F 75 18 101/66 97 07/12/21 02:40 98 07/12/21 01:23 98.4 F 84 18 98/59 98 07/12/21 01:10 98 07/12/21 00:30 98 07/11/21 22:05 98 07/11/21 21:43 98.4 F 92 H 18 102/54 98 07/11/21 19:35 98 07/11/21 13:55 98.8 F 102 H 21 104/63 99 99 07/11/21 13:30 100 H 24 110/67 100 07/11/21 13:15 102 H 16 111/69 100 07/11/21 13:00 99 H 20 110/71 100 07/11/21 12:45 100 H 14 102/61 100 07/11/21 12:30 101 H 13 99/55 100 07/11/21 12:25 99 H 13 102/52 100 07/11/21 12:20 102 H 12 94/50 99 07/11/21 12:18 103 H 12 84/35 98 07/11/21 12:07 97.8 F Intake and Output 07/11/21 07/12/21 07/12/21 23:59 07:59 15:59 Intake Total 320 1405 Output Total 600 1600 Balance -280 -195 Intake: IV 925 Lactated Ringers 1,000 ml 925 @ 125 mls/hr IV DIRECT [facility] Rx#:[id number] Oral 320 Intake, Free Water 480 Output: Urine 600 1600 Indwelling Catheter 600 1200 Void 400 Other: Total, Intake Amount 320 Total, Output Amount 600 400 - Exam Lungs: Present: Normal air movement Abdomen: Present: normal appearance, soft Uterus: Present: normal Deep Tendon Reflex Grade: Normal +2 Incision: Present: normal, dry, intact - Labs Labs: Abnormal lab results 07/12/21 Range/Units 00:16 Hgb 10.0 L (10.1-14.3) gm/dl
--- NOTE | 2021-07-12 11:58 | Discharge Summary ---
Providers - Providers Date of Admission: 07/04/21 08:00 Date of discharge: 07/12/21 Attending physician: LEANA SOLIS MD 06/29/21 08:28 Consult to Physician [CONS] Routine Comment: Consulting Provider: BRANDO NGUYEN Physician Instructions: Please evaluate and co manage. Reason For Exam: IUP @ 23+6 wks, PPROM Primary care physician: [facility] [employer] Hospitalization Reason for admission: observation, rupture of membranes Delivery: Procedure: section Episiotomy: none Laceration: none Incision: normal, dry, intact Other procedures: none complications: none Discharge diagnosis: delivery baby: female Condition at discharge: Good Disposition: 01 HOME / SELF CARE / HOMELESS - Discharge Diagnoses (1) Premature rupture of membranes in second trimester Status: Resolved (2) Status post delivery Status: Acute Plan - Provider Discharge Summary Activity: routine, no sex for 6 weeks, no heavy lifting 4 weeks, no strenuous exercise Diet: routine Instructions: other (Patient has script for norco 5/325.) Additional instructions: [] Smoking cessation referral if applicable(refer to patient education folder for contact #) [] Refer to [facility] Booklet Call your doctor immediately for: * Fever > 100.5 * Heavy vaginal bleeding ( >1 pad per hour) * Severe persistent headache * Shortness of breath * Reddened, hot, painful area to leg or breast * Drainage or odor from incision. * Keep incision clean and dry at all times and follow doctor's instructions regarding bathing/showering - Follow up plan Follow up: PRIMARY CARE, [Primary Care Provider] - 7 Days
[2021-07-12 20:31] VITALS: BP 100/47
== END 2021-07-12 15:55 | disposition home or self-care (01) | DRG 765 ==
LOC: TRG 20:36 → APU 20:39 → LD 06-29 01:27 → TRG 06-29 14:00 → LD 07-04 08:00 → TRG 07-07 13:36 → LD 07-07 13:58 → UNDOADMIN 07-07 13:58 → APU 07-11 10:59 → OB 07-11 13:43
PROVIDERS: ADMIT Obstetrics & Gynecology; ATTEND Obstetrics & Gynecology
PROC: 10D00Z1 Extraction of Products of Conception, Low, Open Approach (ICD-10-PCS; principal; 2021-07-11)
DX: O42.912 Preterm premature rupture of membranes, unspecified as to length of time between rupture and onset of labor, second trimester (principal); O60.14X0 Preterm labor third trimester with preterm delivery third trimester, not applicable or unspecified; O41.1220 Chorioamnionitis, second trimester, not applicable or unspecified; O69.81X0 Labor and delivery complicated by cord around neck, without compression, not applicable or unspecified; O34.211 Maternal care for low transverse scar from previous cesarean delivery; Z3A.25 25 weeks gestation of pregnancy; Z37.0 Single live birth; Z20.822 Contact with and (suspected) exposure to COVID-19
CPT/HCPCS: 36415; 59025; 76805; 81001; 82947; 82950; 82951; 84112; 84484; 85014; 85018; 85025; 85027; 86592; 86706; 86762; 86803; 86850; 86900; 86901; 87086; 87806; 88305; G0378; J3490; J0290; J0595; J0702; J1364; J1885; J2270; J2405; J2765; J3475; J7120; U0003